=== PATIENT | female | born 1955 | race Caucasian/White ===

== ENCOUNTER 2021-01-24 04:36 | Inpatient (IN) | payer MEDICAID, OTHER ==
[2021-01-24] VITALS (15 sets, daily range): BP systolic 91–110; BP diastolic 38–63
[~2021-01-24] VITALS: Ht 172.7 cm; Wt 70.8 kg
--- NOTE | ~2021-01-24 | EMS ---
[facility] [address] [place] [address] EMS Patient Care Report Name: KENDALL ALVARADO Room #: PRE M.R.#: [id number] Admission: Attend Phys: Discharge: Date of : 57 Report #: [id number] THIS REPORT FOR: //name// Report Transmitted: 01/24/2021 04:16 EMS Care Summary [facility] MED-ACT Incident [phone] @ 01/24/2021 03:57 Incident Location [address] [place] [address] Patient KENDALL ALVARADO Female, 65 Years 1955 Patient Address [address] [place] [address] Patient History Congestive Heart Failure (CHF),Chronic Obstructive Pulmonary Disease (COPD),Type 2 Diabetes, Patient Allergies No known allergies, Patient Medications Albuterol, Prednisone, Atrovent, Lisinopril, Metformin, Lasix, Chief Complaint respiratory distress Disposition Transported No Lights/[place] [facility] Reason Breathing Problem Transported To [facility] Narrative M1144 responded emergent to [facility] for [facility] female pt in respiratory distress. S47 arrived on scene prior to M1144 and advised pt is critical. M1144 [facility] [address] [place] [address] EMS Patient Care Report Name: KENDALL ALVARADO Room #: PRE Osman.Ton.#: [id number] Admission: Attend Phys: Discharge: Date of : 57 Report #: [id number] arrived on scene to find the pt sitting upright in bed in obvious respiratory distress. S47 was applying CPAP. Pt noted to have rales in all 4 lung anthony. S47 states they came in and pt was in obvious respiratory distress, SPO2 in the 40s and unable to speak. Staff states pt hasn't been with them very long and they are unsure of pt hx. Paperwork reveals pt has a hx of CHF and COPD. Staff states about 3am pt was up walking around, attempting to use the bathroom in someone elses room. They state pt went back to her room and urinated all over her bed "and she seemed disoriented." Pt son happened to be in the same room as the pt and was able to provide EMS with a little more on the pt. He states she has been staying at the facility for approximately a week. Prior to that she was living out of a hotel. Son noted pt was not acting like herself and struggling to breath so he called 911. He states pt was "fine and without complaint" prior to going to bed. Pt perfusion improves with CPAP. Pt is able to follow commands. Pt moved from bed to cot via sheet. Pt secured to cot with 5 point seatbelt and moved to ambulance. Pt is transported with 2 paramedics in back to the closest open hospital. Pt to room, report given to MD and pt moved to bed via sheet without incident. Initial Vitals @04:15P: 160,SpO2: 97, @04:27P: 180,SpO2: 97, @04:29P: 150,R: 30,BP: 102/72,SpO2: 97, @04:34P: 150,R: 30,BP: 122/64,SpO2: 99, @PTAP: 69,R: 30,SpO2: 75, @PTAP: 150,BP: 134/67,Temp: 97.6F,SpO2: 65, Assessments @04:12MENTAL:Other,SKIN:HEENT:LUNG SOUNDS:ABDOMEN:PELVIS//GI:EXTREMITIES:PULSE:NEURO: Impression Acute Respiratory Distress (Dyspnea) Procedures @04:29Saline Lock 10cc (20 ga) Site: Antecubital-RightResponse: UnchangedSucceeded@PTAOxygen FlowRate: 2 Device: Nasal Cannula (NC) Response: UnchangedFailed@04:1512-Lead ECGResponse: UnchangedSucceeded@PTACPAP Response: Improved Timeline CHECK AND TRANSFER BEADER,Oxygen FlowRate: 2 Device: Nasal Cannula (NC) Response: UnchangedFailed, [facility] [address] [place] [address] EMS Patient Care Report Name: KENDALL ALVARADO Room #: PRE M.R.#: [id number] Admission: Attend Phys: Discharge: Date of : 57 Report #: [id number] CHECK AND TRANSFER BEADER,CPAP Response: Improved CHECK AND TRANSFER BEADER,BP: / M,PULSE: 69,RR: 30 R,SPO2: 75 Ox,ETCO2: ,BG: ,PAIN: ,GCS: , CHECK AND TRANSFER BEADER,BP: 134/67 M,PULSE: 150,RR: R,SPO2: 65 Ox,ETCO2: ,BG: ,PAIN: ,GCS: , 03:56,Call Received 03:56,Psap Call 03:57,Dispatched 04:00,En Route 04:07,On Scene 04:10,At Patient 04:15,12-Lead ECG,Response: UnchangedSucceeded, 04:15,BP: / M,PULSE: 160,RR: R,SPO2: 97 Ox,ETCO2: ,BG: ,PAIN: ,GCS: , 04:27,Depart Scene 04:27,BP: / M,PULSE: 180,RR: R,SPO2: 97 Ox,ETCO2: ,BG: ,PAIN: ,GCS: , 04:29,Saline Lock 10cc 20 ga Site: Antecubital-Right,Response: UnchangedSucceeded, 04:29,BP: 102/72 M,PULSE: 150,RR: 30 R,SPO2: 97 Ox,ETCO2: ,BG: ,PAIN: ,GCS: , 04:34,BP: 122/64 M,PULSE: 150,RR: 30 R,SPO2: 99 Ox,ETCO2: ,BG: ,PAIN: ,GCS: , 04:34,At Destination 04:51,Call Closed Disclaimer v1.1 Copyright 2020 [employer] This EMS Care Summary contains data elements from the applicable legal record (which may be displayed differently). It is designed to provide pertinent information for the following purposes: continuity of care, clinical quality, and state data reporting. The complete legal record is available to ED staff and administrators of the receiving hospital in ES's Patient Tracker. All data is provided "as is."
[2021-01-24 05:07] LABS: BE(vivo) 3.2 mmol/L (-2 to +3); HCO3 30.3 mmol/L (22.0-26.0); PCO2 61.5 mmHg (35.0-45.0); PO2 466.9 mmHg (80.0-100.0); pH 7.311 (7.360-7.450); sO2 99.8 % (92.0-98.0)
[2021-01-24] MEDS ORDERED: ASA81BEC PO (05:10)
[2021-01-24] MEDS ORDERED: ADVAIR 250-501 EACH INH (05:10)
[2021-01-24] MEDS ORDERED: TYLENOL325 M1 PO (05:10)
[2021-01-24] MEDS ORDERED: PROAIR HFA8.5 GM INH (05:10)
[2021-01-24] MEDS ORDERED: VITAMIN D310 MC2 PO (05:11)
[2021-01-24] MEDS ORDERED: FUROSEMIDE 40 M40 MG PO (05:11)
[2021-01-24] MEDS ORDERED: GLIPIZIDE 10 MG10 MG PO (05:11)
[2021-01-24] MEDS ORDERED: LISINOPRIL10 MG PO (05:11)
[2021-01-24] MEDS ORDERED: METFORMIN HCL500 M3 PO (05:11)
[2021-01-24] MEDS ORDERED: [UNRECOGNIZED DRUG - OTHER] PO (05:12)
[2021-01-24] MEDS ORDERED: ZOFRAN 4 MG ORAL4 MG PO (05:12)
[2021-01-24] MEDS ORDERED: PREDNISONE 10 M10 MG PO (05:12)
[2021-01-24 05:17] LABS: ANION GAP 9 mmol/L (7-16); BUN 21 mg/dL (7-18); CALCIUM 8.7 mg/dL (8.5-10.1); CHLORIDE 93 mmol/L (98-107); CO2 28 mmol/L (21-32); CREATININE 0.6 mg/dL (0.6-1.0); GLUCOSE 180 mg/dL (74-106); POTASSIUM 5.4 mmol/L (3.5-5.1); SODIUM 130 mmol/L (136-145)
[2021-01-24 05:23] LABS: ALBUMIN 3.6 g/dL (3.4-5.0); SALICYLATE < 2.8 mg/dL (2.8-20.0); SGOT 29 U/L (15-37); SGPT 21 U/L (14-59); TOTAL BILIRUBIN 0.9 mg/dL (0.2-1.0)
[2021-01-24 06:28] LABS: URINE BILIRUBIN NEGATIVE (Negative); URINE BLOOD NEGATIVE (Negative); URINE CLARITY CLEAR; URINE COLOR YELLOW; URINE GLUCOSE-RANDOM* NEGATIVE (Negative); URINE KETONES NEGATIVE (Negative); URINE LEUKOCYTES-REFLEX NEGATIVE (Negative); URINE NITRITE-REFLEX NEGATIVE (Negative); URINE PROTEIN (DIPSTICK) TRACE (Negative); URINE SPECIFIC GRAVITY 1.025 (1.005-1.035); URINE UROBILINOGEN 0.2 E.U./dl (0.2-1.0)
[2021-01-24 07:00] LABS: ABSOLUTE NEUTROPHILS 8.4 thou/uL (1.4-8.2); BASOPHILS 0.5 % (0.0-2.0); HEMATOCRIT 26.8 % (37.0-47.0); HEMOGLOBIN 8.3 gm/dL (12.0-15.0); LYMPHOCYTES 1.5 % (24.0-44.0); MCH 20.2 pg (26.0-34.0); MCHC 30.8 g/dL (28.0-37.0); MCV 65.7 fL (80.0-100.0); MONOCYTES 2.8 % (1.0-8.0); PLATELET COUNT 366 thou/uL (150-400); POLYS 95.2 % (36.0-66.0); RBC 4.08 mil/uL (4.20-5.00); RDW 20.3 % (10.5-14.5); WBC 8.8 thou/uL (4.0-11.0)
[2021-01-24 07:33] LABS: APTT 24.2 Seconds (24.5-32.8); PROTIME 10.3 Seconds (9.3-11.4)
[2021-01-24 09:41] LABS: FOLIC ACID 17.3 ng/mL (8.6-58.9)
[2021-01-24 09:44] LABS: ANISOCYTOSIS 1+; MICROCYTES 2+; PLATELET ESTIMATE NORMAL
[2021-01-24 09:57] LABS: % SATURATION 5 % (20-39); IRON 19 ug/dL (50-170); TIBC 362 ug/dL (250-450)
--- NOTE | 2021-01-24 12:05 | NUR ---
CALLED [facility] [phone], WAS PLACED ON HOLD AND NEVER PICK ED UP.
--- NOTE | 2021-01-24 12:12 | NUR ---
ATTEMPTED TO CALL HALFWAY AGAIN, WAS SENT TO INSTEAD OF NURSE.
--- NOTE | 2021-01-24 12:14 | NUR ---
RE-DIALED [facility], SPOKE TO HERMILA PETERSON VERIFIED TB NEGATIVE.
[2021-01-24 14:20] LABS: BE(vivo) 7.8 mmol/L (-2 to +3); HCO3 34.3 mmol/L (22.0-26.0); PCO2 61.5 mmHg (35.0-45.0); PO2 152.1 mmHg (80.0-100.0); pH 7.364 (7.360-7.450); sO2 98.8 % (92.0-98.0)
--- NOTE | 2021-01-24 15:31 | NUR ---
TRIED TO CALL HOSPITALIST BACK [phone] LINE BUSY, WILL TRY AGAIN.
--- NOTE | 2021-01-24 15:32 | NUR ---
TRIED HOSPITALIST AGAIN, LINE BUSY. WILL TRY AGAIN.
--- NOTE | 2021-01-24 17:29 | NUR ---
VAT CALLED FOR PICC INSERTION. 3CG OBTAINED RELWASED FOR IMMEDIATE USE PER PROTOCOL
--- NOTE | 2021-01-24 17:33 | NUR ---
VAT CONSULTED FOR PICC PLACEMENT. PT UNABLE TO LAY FLAT OR STILL DURING INSERTION. MCKENZIE UNSUCCESSFUL. DINORAH BRACHIAL WAS WIDELY PATENT WITH USG. 5FR TL POWER PICC TRIMMED TO 48CM INSERTED TO 3CM EXTERNAL WITH PEAKED P-WAVES ON 3CG FOR PICC CONFIRMATION. PICC RELEASED FOR IMMEDIATE USE PER PROTOCOL TO RADHA BRUSH
--- NOTE | 2021-01-24 21:30 | NUR ---
Pt arrived ICU valencia low, accompanied with ER and RT staff. She is being admit for COPD, CO2 narcosis and Hypoxia. She appears drowsy, arousable. Currently on BIPAP at this time. AAOx3. Denies of any pain or discomfort upon arrival. NSR upon arrival. HX obtained from old medical records. Assessment complated. Care plans are initiated. Continue working toward goals.
[2021-01-25] VITALS (90 sets, daily range): BP systolic 87–130; BP diastolic 36–85
[2021-01-25 03:15] LABS: RDW 19.4 % (10.5-14.5)
[2021-01-25 03:17] LABS: HEMATOCRIT 24.2 % (37.0-47.0); HEMOGLOBIN 7.7 gm/dL (12.0-15.0); MCH 21.6 pg (26.0-34.0); MCHC 31.7 g/dL (28.0-37.0); MCV 68.3 fL (80.0-100.0); RBC 3.55 mil/uL (4.20-5.00); WBC 5.7 thou/uL (4.0-11.0)
[2021-01-25 03:22] LABS: PLATELET COUNT 260 thou/uL (150-400)
[2021-01-25 03:31] LABS: APTT 28.3 Seconds (24.5-32.8); INR 1.02; PROTIME 11.1 Seconds (10.5-12.1)
[2021-01-25 03:39] LABS: CALCIUM 7.8 mg/dL (8.5-10.1); CREATININE 0.5 mg/dL (0.6-1.0); MAGNESIUM 1.7 mg/dL (1.8-2.4); POTASSIUM 4.5 mmol/L (3.5-5.1)
[2021-01-25 04:06] LABS: GLYCOHEMOGLOBIN (HGB A1C) 7.2 % (4.8-5.6)
[2021-01-25 04:11] LABS: ABSOLUTE NEUTROPHILS 5.5 thou/uL (1.4-8.2); NUCLEATED RBCS 1 /100WBC
[2021-01-25 04:12] LABS: ANISOCYTOSIS 2+; HYPOCHROMASIA 3+; MICROCYTES 2+; POLYCHROMASIA 1+
[2021-01-25 04:15] LABS: OVALOCYTES 1+; SCHISTOCYTES OCCASIONAL; TARGET CELLS 1+; TEARDROPS 1+
[2021-01-25 04:16] LABS: POIKILOCYTOSIS 1+
--- NOTE | 2021-01-25 05:29 | HC ---
[facility] [place] [address] [place] [address] CONSULTATION Name: KENDALL ALVARADO Room #: [facility]- ADM IN M.R.#: [id number] Admission: 01/24/21 Attend Phys: Narda Hernandez MD Discharge: Date of : 57 Report #: [id number] THIS REPORT FOR: cc: Adrian Cruz MD, Shyam MD Barry, Joseph W. MD ~ DATE OF SERVICE: 01/24/2021 INFECTIOUS DISEASE CONSULTATION ATTENDING PHYSICIAN: Dr. Hernandez. REASON FOR EVALUATION: Bilateral pneumonitis with miliary pattern noted on CT of the chest. HISTORY OF PRESENT ILLNESS: Chart reviewed. The patient examined. This is a 65-year-old woman with a degree of disease burden, has underlying lung disease with COPD. I think chronically requiring supplemental oxygen at 2 liters. She does live in a facility due to her capacitation. She has been noted to be encephalopathic, difficult to ascertain specifics about her situation. She described a cough. It is not clear that she had any fevers or chills. Does admit to anorexia, poor p.o. intake and perhaps a significant weight loss. She was referred from the facility due to worsening respiratory distress and encephalopathy. As per the evaluation, initial ABGs 100% showed a pO2 of 466. Coronavirus testing was negative. Urinalysis was unremarkable. Lactic acid normal range at 1.3. ProBNP of 1950. Chest x-ray shows some hyperexpansion and diffuse opacities; however, followup CT noted evidence of PE, emphysematous changes of tiny nodular bibasilar infiltrates, question of atypical pneumonitis, perhaps viral versus miliary TB or atypical Mycobacterium. Review of the records notes, she was supposed to have a TB test about a week ago. It is unclear as to why that was ordered. We do not have the results at this point, we will try to obtain those records. She was started on empiric therapy with vancomycin, azithromycin, ceftriaxone. ALLERGIES: None known. CURRENT MEDICATIONS: Antibiotics include pantoprazole, enoxaparin, budesonide, methylprednisolone 62.5, ipratropium, albuterol inhaler, p.r.n. antiemetics, antidiuretics. PAST MEDICAL HISTORY: Known history of O2 requiring COPD, diabetes mellitus type 2, cardiomyopathy with history of congestive heart failure, hypertension. SOCIAL HISTORY: Does smoke cigarettes. No current tobacco or ethanol use. FAMILY HISTORY: Noncontributory. [facility] [address] [place] [address] CONSULTATION Name: KENDALL ALVARADO Room #: 245-P [facility] IN ..#: [id number] Admission: 01/24/21 Attend Phys: Narda Hernandez MD Discharge: Date of : 57 Report #: [id number] REVIEW OF SYSTEMS: Not reliably obtained due to her encephalopathy. PHYSICAL EXAMINATION: GENERAL: She appears chronically ill, undernourished. She is pale. HEENT: Normocephalic. Extraocular muscles intact. Nasal cannula in place, 4 liters per nasal cannula. NECK: Supple. LUNGS: Diminished overall. Scattered coarse breath sounds. HEART: Distant, tachycardic, regular. I do not appreciate a murmur. ABDOMEN: Mildly distended, somewhat firm, nontender. EXTREMITIES: No cyanosis or edema. GENITOURINARY AND RECTAL: Deferred. LABORATORY DATA: CT of the chest as noted above. Ferritin of 61. TSH 0.693. CBC: White count 8.8, H and H 8.3 and 26.8, platelets of 366. D-dimer 0.55. Procalcitonin 0.10. Electrolytes: Sodium 130, potassium 5.4, chloride 93, bicarbonate is 28, BUN and creatinine 21 and 0.6. LFTs unremarkable. Albumin of 36, total protein 7.0, estimated GFR of 101. ASSESSMENT AND PLAN: Bilateral pneumonitis, acute on chronic situation, difficult to ascertain, I do not have any comparison imaging. She is unable to give any history. She denies any known exposure. 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 She has never been in overseas, although she denies ever having been tested for TB, seems unlikely. At this point, recommended to respiratory isolation until we can get more records. We will call the [facility] to obtain any recent TB results. It is not clear that she be able to expectorate any sputum at this point. Noted Pulmonary to evaluate, may need to do a bronchoscopy in this way of an alternative diagnosis. She remains quite tenuous. Continue to monitor expectantly. Continue empiric therapy. <ELECTRONICALLY SIGNED> By: Dre Leal MD 01/25/21 0529 1205 2100 Dre Leal MD /nt
[2021-01-25] MEDS ORDERED: DELTA D310 MCG PO (05:30)
[2021-01-25] MEDS ORDERED: MAALOX ADVANCE355 ML PO (06:19)
--- NOTE | 2021-01-25 06:26 | NUR ---
No event tonight. Pt remains on 3 liters of oxygen this morning. She is very shortness of breath with any activity. Refused to place BIPAP back on this morning. Off levophed gtt at 0600 hr. MAP > [address] on monitor. She is afebrile in this shift. Slowly progressing toward goals.
--- NOTE | 2021-01-25 10:29 | EKG ---
[address] [place] [address] ELECTROCARDIOGRAM REPORT Name: KENDALL ALVARADO Room #: 245-P ADM IN M.R.#: [id number] Admission: 01/24/21 Attend Phys: Narda Hernandez MD Discharge: Date of : 57 Report #: [id number] [facility] ED Test Date: 2021-01-24 Test Time: 04:43:25 Pat Name: KENDALL ALVARADO Department: Room: [facility] Gender: F Rinkman: DEXTER : 1955 Requested By: Narda Hernandez Order Number: [id number] MD: Cesar Montero Measurements Intervals [place] Rate: 114 P: 72 OK: 131 QRS: 115 QRSD: 89 T: 61 QT: 302 QTc: 416 Interpretive Statements Sinus tachycardia Right atrial enlargement Poor R wave progression No previous ECG available for comparison Electronically Signed On 01-25-2021 10:28:55 CDT by Cesar Montero [email or web address] <ELECTRONICALLY SIGNED> By: Cesar Montero MD, [facility] 01/25/21 1028 0443 0443 Cesar Montero MD, FACC /EPI
--- NOTE | 2021-01-25 10:43 | EKG ---
[address] [place] [address] ELECTROCARDIOGRAM REPORT Name: KENDALL ALVARADO Room #: 245-P ADM IN M.R.#: [id number] Admission: 01/24/21 Attend Phys: Narda Hernandez MD Discharge: Date of : 57 Report #: [id number] [facility] ED Test Date: 2021-01-24 Test Time: 14:07:39 Pat Name: KENDALL ALVARADO Department: Room: [facility] Gender: F Cna Instructor: JCHAIREZ : 1955 Requested By: Narda Hernandez Order Number: [id number] MD: Cesar Montero Measurements Intervals [place] Rate: 109 P: 76 CT: 135 QRS: 102 QRSD: 81 T: 62 QT: 310 QTc: 418 Interpretive Statements Sinus tachycardia Right axis deviation Borderline low voltage, extremity leads Compared to ECG 01/24/2021 04:43:25 No significant change was found Electronically Signed On 01-25-2021 10:43:21 CDT by Cesar Montero [email or web address] <ELECTRONICALLY SIGNED> By: Cesar Montero MD, [facility] 01/25/21 1043 06 06 Cesar Montero MD, [facility] /EPI
--- NOTE | 2021-01-25 16:11 | NUR ---
PT ALERT AND ORIENTED TIMES TWO. VSS. PT IS SOA ON EXCERTION. 96%3L, IVF INFUSING PER ORDER. SR ON KASSANDRA PRESCOTT TO DD. PT TOLERATES MEDS WITH SMALL SIPS OF WATER. PT DENIES PAIN. WILL CONTINUE TO MONITOR.
--- NOTE | 2021-01-25 20:00 | NUR ---
Pt is withdrew to painful stimulation only. TORSTEN. Place pt back on BIPAP at this time. Will continue to follow.
--- NOTE | 2021-01-25 20:00 | NUR ---
Pt is very somnolent, minimal resposes noted. Placed her back on BIPAP at this time.
--- NOTE | 2021-01-25 21:15 | 2DMMODE ---
[facility] [place] [address] 2 D/M-MODE ECHOCARDIOGRAM Name: KENDALL ALVARADO Room #: 245-P ADM IN M.R.#: [id number] Admission: 01/24/21 Attend Phys: Narda Hernandez MD Discharge: Date of : 57 Report #: [id number] THIS REPORT FOR: cc: Adrian Cruz MD, Shyam MD Lundgren, Craig H. MD [facility] ~ APPROVED REPORT Study performed: 01/25/2021 10:52:06 EXAM: Comprehensive 2D, Doppler, and color-flow Echocardiogram Patient Location: Bedside Room #: 245 Status: on-call BSA: 2.17 HR: 109 bpm BP: 108/60 mmHg Rhythm: NSR Other Information Study Quality: Adequate Technically limited study due to pt sitting upright. Risk Factors: Cardiac Risk Factors: HTN, Smoking Indications Congestive Heart Failure COPD Dyspnea Hypertension/HDD 2D Dimensions IVSd: 8.82 (7-11mm) LVOT Diam: 17.00 (18-24mm) LVDd: 38.11 mm PWd: 10.89 (7-11mm) Ascending Ao: 27.38 (22-36mm) LVDs: 24.32 (25-40mm) Left Atrium: 41.61 (27-40mm) Aortic Root: 23.10 mm LV Single Plane 4CH: 75.80 % LV Single Plane 2CH: 78.58 % Biplane EF: 77.6 % Volumes [facility] [address] [place] [address] 2 D/M-MODE ECHOCARDIOGRAM Name: KENDALL ALVARADO Room #: 245-P ADM IN M.R.#: [id number] Admission: 01/24/21 Attend Phys: Osman Sargent Discharge: Date of : 57 Report #: [id number] Left Atrial Volume (Systole) Single Plane 4CH: 82.77 mL Single Plane 2CH: 86.17 mL LA ESV Index: 44.00 mL/m2 Aortic Valve AoV Peak Anurag.: 2.40 m/s AO Peak Gr.: 23.12 mmHg LVOT Max P.25 mmHg AO Mean Gr.: 14.84 mmHg LVOT Mean P.30 mmHg AO V2 Mean: 1.88 m/s LVOT Max V: 1.39 m/s AO V2 VTI: 33.12 cm LVOT Mean V: 1.10 m/s BLAYNE (VTI): 1.58 cm2 LVOT V1 VTI: 23.13 cm BLAYNE Vmax: 1.31 cm2 SV (LVOT): 52.46 mL Mitral Valve MV Peak Gr.: 34.16 mmHg MV Mean Gr.: 20.80 mmHg MV Max Anurag.: 2.92 m/s MV Mean Anurag.: 2.17 m/s MV VTI: 571.25 mm MVA VTI: 91.83 mm2 MV PHT: 114.92 ms MVA (PHT): 1.91 cm2 Pulmonary Valve PV Peak Anurag.: 1.17 m/s PV Peak Gr.: 5.51 mmHg Tricuspid Valve TR Peak Anurag.: 3.87 m/s RAP Estimate: 10.00 mmHg TR Peak Gr.: 59.84 mmHg PA Pressure: 70.00 mmHg Left Ventricle The left ventricle is normal size. There is normal LV segmental wall motion. There is normal left ventricular wall thickness. Left ventricular systolic function is normal. The left ventricular ejection fraction is within the normal range. LVEF is >70%. This study is not technically sufficient to allow evaluation of the LV diastolic function. Right Ventricle The right ventricle is normal size. The right ventricular systolic function is normal. Atria Left atrium is moderately dilated. The right atrium size is [facility] [address] [place] [address] 2 D/M-MODE ECHOCARDIOGRAM Name: KENDALL ALVARADO Room #: 245-P [facility] IN [facility].#: [id number] Admission: 01/24/21 Attend Phys: Osman Sargent Discharge: Date of : 57 Report #: [id number] normal. Aortic Valve Aortic valve is calcified, trileaflet, mild stenosis No aortic regurgitation is present. The peak aortic gradient is 23 mmHg and the mean gradient is 15 mmHg. Calculated aortic valve area is 1.4 cm2. Mitral Valve Severe mitral annular calcification. Mitral valve leaflets are calcified. Severe mitral stenosis There is no mitral valve regurgitation The mean mitral valve pressure gradient is 21 mmHg, peak 36mmHg. Tricuspid Valve The tricuspid valve is normal in structure. Mild tricuspid regurgitation. Pulmonary artery pressure is 65-70 mmHg. Pulmonic Valve The pulmonary valve is normal in structure. There is no pulmonic valvular regurgitation. Great Vessels The aortic root is normal in size. The ascending aorta is normal in size. IVC is normal in size and collapses >50% with inspiration. Pericardium There is no pericardial effusion. <Conclusion> Left ventricular systolic function is normal. There is normal LV segmental wall motion. LVEF is >70%. Left atrium is moderately dilated. Aortic valve is calcified, trileaflet, mild stenosis. No aortic insufficiency The peak aortic gradient 23 mmHg and the mean gradient is 15 mmHg. Calculated aortic valve area is 1.4 cm2. Severe mitral annular calcification. Mitral valve leaflets are calcified. Severe mitral stenosis The mean mitral valve pressure gradient is 21 mmHg, peak 36mmHg. Mild tricuspid regurgitation. Pulmonary artery pressure of 65-[address] [address] 2 D/M-MODE ECHOCARDIOGRAM Name: KENDALL ALVARADO Room #: 245-P [facility] IN M.R.#: [id number] Admission: 01/24/21 Attend Phys: Osman Sargent Discharge: Date of : 57 Report #: [id number]. There is no pericardial effusion. <ELECTRONICALLY SIGNED> By: Cesar Montero MD, FACC 01/25/212114 14 14 Cesar Montero MD, FACC /INF
[2021-01-26] VITALS (49 sets, daily range): BP systolic 77–144; BP diastolic 35–65
[2021-01-26 04:39] LABS: HEMATOCRIT 25.2 % (37.0-47.0); HEMOGLOBIN 7.1 gm/dL (12.0-15.0); MCH 19.9 pg (26.0-34.0); MCHC 28.3 g/dL (28.0-37.0); MCV 70.5 fL (80.0-100.0); RBC 3.58 mil/uL (4.20-5.00); RDW 19.3 % (10.5-14.5); WBC 7.6 thou/uL (4.0-11.0)
[2021-01-26 04:57] LABS: CALCIUM 8.1 mg/dL (8.5-10.1); CREATININE 0.4 mg/dL (0.6-1.0); POTASSIUM 4.7 mmol/L (3.5-5.1)
--- NOTE | 2021-01-26 06:04 | NUR ---
Pt remains on BIPAP this am. Still very sleepy, but more resposive. VSS. Continue to monitor her closely.
[2021-01-26 09:13] LABS: BE(vivo) 6.2 mmol/L (-2 to +3); HCO3 35.8 mmol/L (22.0-26.0); PCO2 93.1 mmHg (35.0-45.0); PO2 79.1 mmHg (80.0-100.0); pH 7.203 (7.360-7.450)
--- NOTE | 2021-01-26 09:27 | NUR ---
PT OBTUNDED. ABG DRAWN AND CALLED TO DR. MEADE. ORDERS GIVEN BIPAP CHANGES MADE, WILL REPEAT ABG IN [address] MEADE THAT NOC NURSE STATED PT LUCID AT SOME POINT LAST NIGHT AND STATED SHE WANTED TO BE A FULL CODE. NOC NURSE STATED SHE CALLED PT SON WHO IS DPOA AND HE WANTED PT TO BE A FULL CODE WELL. CODE STATUS CHANGED TO FULL CODE.
[2021-01-26 13:35] LABS: BE(vivo) 11.9 mmol/L (-2 to +3); HCO3 39.7 mmol/L (22.0-26.0); PCO2 78.7 mmHg (35.0-45.0); pH 7.321 (7.360-7.450); sO2 95.3 % (92.0-98.0)
[2021-01-26 17:44] LABS: HEMATOCRIT 26.5 % (37.0-47.0); HEMOGLOBIN 7.9 gm/dL (12.0-15.0)
--- NOTE | 2021-01-26 20:31 | NUR ---
END OF SHIFT NOTE. PT NOT PROGRESSING TOWARDS GOALS. REMAINS SOMNULENT ON BIPAP. 1 UNIT OF PRBCS TODAY. HBG UP TO 7.9
[2021-01-27] VITALS (23 sets, daily range): BP systolic 82–127; BP diastolic 40–54
[2021-01-27 04:46] LABS: BE(vivo) 14.3 mmol/L (-2 to +3); HCO3 43.5 mmol/L (22.0-26.0); PCO2 92.5 mmHg (35.0-45.0); PO2 86.3 mmHg (80.0-100.0); sO2 94.8 % (92.0-98.0)
[2021-01-27 06:12] LABS: HEMATOCRIT 27.1 % (37.0-47.0); HEMOGLOBIN 7.9 gm/dL (12.0-15.0); MCH 21.3 pg (26.0-34.0); MCHC 29.3 g/dL (28.0-37.0); MCV 72.8 fL (80.0-100.0); RBC 3.72 mil/uL (4.20-5.00); RDW 21.5 % (10.5-14.5); WBC 7.5 thou/uL (4.0-11.0)
[2021-01-27 06:40] LABS: CREATININE 0.5 mg/dL (0.6-1.0); POTASSIUM 4.2 mmol/L (3.5-5.1)
--- NOTE | 2021-01-27 07:23 | EKG ---
[address] [employer] [place] [address] ELECTROCARDIOGRAM REPORT Name: KENDALL ALVARADO Room #: 245-P ADM IN M.R.#: [id number] Admission: 01/24/21 Attend Phys: Narda Hernandez MD Discharge: Date of : 57 Report #: [id number] [facility] Test Date: 2021-01-26 Test Time: 14:19:22 Pat Name: KENDALL ALVARADO Department: Room: [facility] Gender: F Digital [employer] Press Operator: DANIEL : 1955 Requested By: Fredy Larose Order Number: [id number] MD: Ochoa Lazcano Measurements Intervals [place] Rate: 115 P: 78 CA: 119 QRS: 100 QRSD: 70 T: QT: 328 QTc: 454 Interpretive Statements Sinus arrhythmia Multiple premature complexes, vent & supraven Right axis deviation Borderline low voltage, extremity leads Minimal ST depression, inferior leads Compared to ECG 01/24/2021 14:07:39 ST (T wave) deviation now present Sinus tachycardia no longer present Electronically Signed On 01-27-2021 7:23:35 CDT by Ochoa Lazcano [email or web address] <ELECTRONICALLY SIGNED> By: Ochoa Lazcano MD, FACC 01/27/21 0723 1419 1419 Ochoa Lazcano MD, [facility] /EPI
--- NOTE | 2021-01-27 09:52 | NUR ---
UNABLE TO AROUSE PATIENT. ATTEMPT EVAL TOMORROW
[2021-01-27 13:08] LABS: BE(vivo) 8.6 mmol/L (-2 to +3); HCO3 39.2 mmol/L (22.0-26.0); sO2 91.8 % (92.0-98.0)
[2021-01-27 13:09] LABS: PCO2 98.8 mmHg (35.0-45.0); pH 7.216 (7.360-7.450)
--- NOTE | 2021-01-27 13:30 | NUR ---
ON BIPAP, LETHARGIC AND UNABLE TO AROUSE, GRIMMACES WITH CARE. VITALS STABLE. PATIENT'S SON CALLED AND UPDATED AND PRIVACY CODE PROVIDED. ORDERS RECEIVED FOR ABG AND CRITICAL RESULTS CALLED TO DR. MEADE. NEW ORDERS FOR INTUBATION LATER THIS AFTERNOON RECEIVED. ATTEMPT TO REACH SON BY PHONE WITH THIS UPDATE UNSUCCESSFUL AND PLACED ON HOLD FOR APPROXIMATELY 15MINUTES. WILL NOTIFY WHEN AVAILABLE.
--- NOTE | 2021-01-27 16:25 | NUR ---
Chart review, discussed during LOS and unite rounds. COPD, requiring use of BIPAP, CT today to rule out TB. Unable to visit with her. Will cont following as needed for dc needs.
--- NOTE | 2021-01-27 17:21 | NUR ---
DR. MEADE CAME TO THE UNIT TO INTUBATE PATIENT AND SHE SUDDENLY WOKE UP AND STARTED FOLLOWING COMMANDS. DR. MEADE GAVE ORDERS TO SWITCH OF BIPAP TO CANNULA FOR BREAKS BUT TO PLACE ON FULL FACE BIPAP MASK MOST OF THE TIME DUE TO PATIENT'S CO2 RETENTION HISTORY, HE ALSO STATED THAT HE WOULD ATTEMPT TO CALL SON AND TOUCH BASES ON POC AND CODE STATUS.
[2021-01-28] VITALS (20 sets, daily range): BP systolic 91–123; BP diastolic 38–51
[2021-01-28 04:58] LABS: HEMATOCRIT 25.1 % (37.0-47.0); HEMOGLOBIN 7.5 gm/dL (12.0-15.0); MCH 21.7 pg (26.0-34.0); MCHC 29.7 g/dL (28.0-37.0); MCV 73.2 fL (80.0-100.0); RBC 3.43 mil/uL (4.20-5.00); RDW 21.8 % (10.5-14.5); WBC 6.5 thou/uL (4.0-11.0)
[2021-01-28 05:08] LABS: ANION GAP < 0 mmol/L (7-16); BUN 22 mg/dL (7-18); CALCIUM 7.9 mg/dL (8.5-10.1); CHLORIDE 107 mmol/L (98-107); CO2 41 mmol/L (21-32); CREATININE 0.4 mg/dL (0.6-1.0); GLUCOSE 237 mg/dL (74-106); POTASSIUM 3.9 mmol/L (3.5-5.1); SODIUM 147 mmol/L (136-145)
[2021-01-28 05:12] LABS: BE(vivo) 12.8 mmol/L (-2 to +3); HCO3 40.5 mmol/L (22.0-26.0); PCO2 77.3 mmHg (35.0-45.0); PO2 101.2 mmHg (80.0-100.0); pH 7.337 (7.360-7.450)
--- NOTE | 2021-01-28 11:26 | NUR ---
Discussed during am unite rounds, will be moving to room 236 when bed opens up. Remains on isolation, unable to visit with syed, cont require use of bipap. Will cont following as needed for dc needs.
--- NOTE | 2021-01-28 16:03 | NUR ---
ASSUMED CARE OF PT AT 0700 PT IS NOT MEETING GOALS DUE TO HER NOT FOLLOWING ANY COMMANDS. PT DID OPEN HER EYES ONCE WHEN I SAID HER NAME BUT WOULD NOT SQUEEZE HANDS. SHE DOES WAKE UP WITH CARES.
[2021-01-29] VITALS (22 sets, daily range): BP systolic 100–138; BP diastolic 36–62
--- NOTE | 2021-01-29 09:38 | NUR ---
Recommend once TF at goal, discontinue IVF.
[2021-01-29 11:03] LABS: BE(vivo) 11.6 mmol/L (-2 to +3); HCO3 39.4 mmol/L (22.0-26.0); PCO2 75.1 mmHg (35.0-45.0); PO2 98.8 mmHg (80.0-100.0); pH 7.338 (7.360-7.450); sO2 96.8 % (92.0-98.0)
[2021-01-29 13:11] LABS: HEMATOCRIT 26.6 % (37.0-47.0); HEMOGLOBIN 7.9 gm/dL (12.0-15.0); MCH 21.3 pg (26.0-34.0); MCHC 29.6 g/dL (28.0-37.0); MCV 72.1 fL (80.0-100.0); RBC 3.69 mil/uL (4.20-5.00); RDW 22.4 % (10.5-14.5); WBC 8.3 thou/uL (4.0-11.0)
[2021-01-29 13:25] LABS: ANION GAP < 0 mmol/L (7-16); BUN 17 mg/dL (7-18); CALCIUM 8.2 mg/dL (8.5-10.1); CHLORIDE 107 mmol/L (98-107); CO2 43 mmol/L (21-32); CREATININE 0.4 mg/dL (0.6-1.0); GLUCOSE 182 mg/dL (74-106); POTASSIUM 3.7 mmol/L (3.5-5.1); SODIUM 147 mmol/L (136-145)
--- NOTE | 2021-01-29 17:07 | NUR ---
FAXED CLINICAL UPDATES AND NEGATIVE COVID RESULT (01/24/21) TO [facility]. WILL CONFIRM WITH KATE/LIAISON THAT SHE RECEIVED. [facility] P [phone]; FAX [phone]; M [phone]
--- NOTE | 2021-01-29 18:22 | NUR ---
ASSUMED CARE OF PT AT 0700 DR. ELLIOTT AT BEDSIDE AT 1300, NO NEW ORDERS GIVEN PT IS NOT MEETING GOALD AND STILL NEEDING A LOT OF OXYGEN SUPPORT AND SHE IS NOT FOLLOWING COMMANDS BUT WILL OCCASIONALLY SAY HELLO AND YES.
--- NOTE | 2021-01-29 20:40 | NUR ---
PT ASSESSMENT COMPLETED PER FLOW SHEETS, PT RESP RATE22 OS SAT 97% ON BI-PAP AT 70%, PT HAS GAG REFLEX BUT IS OTHERWISW UNRESPONSIVE EXCEPT MOANS A LITTLE TO STERNAL RUB, PT LUNGS ARE DIMINISHED L MORE DIM THAN R PT ON 70% BI-PAP AT THIS TIME SO -LUZ MARIA NOT PLACED AT THIS TIME AND WILL COORDINATE WITH RT ONCE PTS O2 DEMAND HAS LESSENED AND RT HAS TIME FOR PROCEDURE. PT TURNED TO LEFT SIDE.
[2021-01-30] VITALS (69 sets, daily range): BP systolic 70–147; BP diastolic 23–72
[2021-01-30 09:23] LABS: BE(vivo) 14.1 mmol/L (-2 to +3); HCO3 46.9 mmol/L (22.0-26.0); PO2 137.1 mmHg (80.0-100.0); sO2 97.5 % (92.0-98.0)
[2021-01-30 09:24] LABS: PCO2 140.9 mmHg (35.0-45.0)
--- NOTE | 2021-01-30 10:33 | NUR ---
ASSUMED CARE OF PT AT 0700, PT IS STILL NON RESPONSIVE AND ON BIPAP
--- NOTE | 2021-01-30 12:39 | NUR ---
cm rtrn'd rn call. rn indicated she got her questions answered, as there was conflicting info btwn [facility] and facility regarding pt's code status. per rn, pt's son, kevin, "wants everything done."
--- NOTE | 2021-01-30 19:06 | NUR ---
Contacted [facility]'s lab to find DNA probe results for MTB this afternoon. Fax results came in at [phone]. Called ICU. Patient nurse in room. Informed Yun to place fax on patient chart. Call placed to Dr. Navarro for order to discontinue airborne precautions. He agreed for isolation ca'kana Barlow confirmed isolation was discontinued and sign removed.
[2021-01-31] VITALS (81 sets, daily range): BP systolic 91–142; BP diastolic 25–83
--- NOTE | 2021-01-31 04:47 | NUR ---
ASSUMED CARE OF PATIENT AT 2200. PATIENT WAS ON A/C OF 18/380/.40 +5. SUCTIONED LITTLE TO NO SECRETIONS OUT DURING THE SHIFT. MADE NO CHANGES TO SETTINGS. PATIENT IN NO SEDATED AND IN NO DISTRESS.
[2021-01-31 08:50] LABS: T-SPOT.TB Negative
--- NOTE | 2021-01-31 16:24 | NUR ---
Will cont. dcp as needed for discharge. No anticipated dc over the weekend. She cont on vent, nutritional support. Will update op centers next week.
--- NOTE | 2021-01-31 18:33 | NUR ---
Patient progressing towards plan of care as evidenced by increasing periods of alertness, however, does not follow commands or attempt to communicate. Levophed titration, and sedation titration for patient comfort and ventilator compliance. She is tolerating nutrition.
[2021-02-01] VITALS (20 sets, daily range): BP systolic 89–132; BP diastolic 36–402
[2021-02-01 11:59] LABS: HEMATOCRIT 23.8 % (37.0-47.0); HEMOGLOBIN 7.1 gm/dL (12.0-15.0); MCH 21.1 pg (26.0-34.0); MCV 70.4 fL (80.0-100.0); RBC 3.38 mil/uL (4.20-5.00); RDW 23.4 % (10.5-14.5); WBC 10.6 thou/uL (4.0-11.0)
[2021-02-01 12:09] LABS: ALBUMIN 2.2 g/dL (3.4-5.0); ANION GAP < 0 mmol/L (7-16); BUN 18 mg/dL (7-18); CALCIUM 7.9 mg/dL (8.5-10.1); CHLORIDE 106 mmol/L (98-107); CO2 41 mmol/L (21-32); CREATININE 0.5 mg/dL (0.6-1.0); GLUCOSE 283 mg/dL (74-106); MAGNESIUM 2.2 mg/dL (1.8-2.4); PHOSPHORUS 2.4 mg/dL (2.5-4.9); POTASSIUM 3.9 mmol/L (3.5-5.1); SGOT 17 U/L (15-37); SGPT 19 U/L (30-65); SODIUM 146 mmol/L (136-145); TOTAL BILIRUBIN 0.7 mg/dL (0.2-1.0); TOTAL PROTEIN 5.5 g/dL (6.4-8.2)
[2021-02-01 13:19] LABS: BE(vivo) 14.3 mmol/L (-2 to +3); HCO3 40.3 mmol/L (22.0-26.0); PCO2 61.6 mmHg (35.0-45.0); PO2 69.3 mmHg (80.0-100.0); pH 7.434 (7.360-7.450); sO2 93.8 % (92.0-98.0)
--- NOTE | 2021-02-01 14:48 | NUR ---
PT INTUBATED AND SEDATED, VENT SETTINGS TITRATED BY RT. PT AFEBRILE, ADEQUATE UOP, NO BM, TOLERATING TUBE FEEDINGS. PICC LINE DOES NOT DRAW OUT OF ONE PORT, VASCULAR ACCESS MADE AWARE. SEDATION STOPPED THIS AM AND PT WAS ABLE TO WAKE UP BUT DOES NOT FSC OR TRACK WITH EYES. PT AND FAMILY HAVE BEEN THOUROUGHLY UPDATED AND EDUCATED ON PT CONDITION AND POC. UNABLE TO TITRATE LEVOPHED DUE TO PT CONDITION. PT SLOWLY PROGRESSING TOWARDS POC.
[2021-02-02] VITALS: BP 121/39
[2021-02-02 02:04] VITALS: BP 117/89
[2021-02-02 04:00] VITALS: BP 109/41
[2021-02-02 04:25] LABS: BE(vivo) 13.2 mmol/L (-2 to +3); HCO3 38.8 mmol/L (22.0-26.0); PCO2 57.8 mmHg (35.0-45.0); PO2 61.6 mmHg (80.0-100.0); pH 7.445 (7.360-7.450); sO2 91.9 % (92.0-98.0)
[2021-02-02 05:55] LABS: ABSOLUTE NEUTROPHILS 11.4 thou/uL (1.4-8.2); BASOPHILS 0.3 % (0.0-2.0); EOSINOPHILS 1.6 % (0.0-3.0); HEMATOCRIT 24.1 % (37.0-47.0); HEMOGLOBIN 7.3 gm/dL (12.0-15.0); LYMPHOCYTES 4.1 % (24.0-44.0); MCH 21.1 pg (26.0-34.0); MCHC 30.5 g/dL (28.0-37.0); MCV 69.2 fL (80.0-100.0); MONOCYTES 5.4 % (1.0-8.0); PLATELET COUNT 203 thou/uL (150-400); POLYS 88.6 % (36.0-66.0); RBC 3.48 mil/uL (4.20-5.00); RDW 24.2 % (10.5-14.5); WBC 12.9 thou/uL (4.0-11.0)
[2021-02-02 06:00] VITALS: BP 119/41
--- NOTE | 2021-02-02 06:00 | NUR ---
REMAINS INTUBATED AND SEDATED WITH PROPOFOL 20 MCG AND FENTANYL 100 MCG VENT MANAGEMENT. SR WITH OCC PAC 1000 CC UO THIS SHIFT. MAMADOU TUBE FEEDINGS NO STOOLS TONIGHT. PARTIAL BATH GIVEN. SLOWLY PROGRESSING TOWARD GOALS WILL CONT TO MONITOR.
[2021-02-02 06:40] LABS: ALBUMIN 2.2 g/dL (3.4-5.0); ANION GAP < 0 mmol/L (7-16); BUN 19 mg/dL (7-18); CALCIUM 7.9 mg/dL (8.5-10.1); CHLORIDE 105 mmol/L (98-107); CO2 42 mmol/L (21-32); CREATININE 0.5 mg/dL (0.6-1.0); GLUCOSE 228 mg/dL (74-106); PHOSPHORUS 2.5 mg/dL (2.6-4.7); POTASSIUM 4.1 mmol/L (3.5-5.1); SODIUM 143 mmol/L (136-145)
--- NOTE | 2021-02-02 15:44 | NUR ---
PT INTUBATED AND SEDATED, VENT SETTINGS CHANGED BY MD. PT IS MORE AWAKE TODAY BUT DOSE NOT FSC. BEGINING TO TRACK WITH EYES. LEVOPHED BEING TITRATED DOWN PER PT CONDITION. PT AFEBRILE, ADEQUATE UOP, NO BM, TOLERATING TUBE FEEDING. RESTRAINTS IN PLACE. SARAH PICC LINE WAS SHOWN TO BE MISPLACED SO IV ACCESS TEAM WAS CALLED AND THEY REPLACED THE LINE AND IS NOW IN THE RU EXTREMITIY AND HAS BEEN CONFIRMED FOR USE. ATTEMPTED TO CALL THE ONLY PERSON LISTED ON CHART, HE WAS UNABLE TO BE REACHED, DUE TO BEING IN A MEDICAL FACILITY HIMSELF. PT HAS BEEN THOUROUGHLY UPDATED AND EDUCATED ON PT CONDITION AND POC. PT SLOWLY PROGRESSING TOWARDS POC.
--- NOTE | 2021-02-02 16:00 | NUR ---
NOTIFIED THE PICC WAS LOOPED AND MALPOSITIONED. A NEW ORDER AND CONSENT WERE OBTAINED. A NEW #5F TRIPLE LUMEN PICC WAS PLACED PER HOSPITAL POLICY AFTER A BEDSIDE TIMEOUT WAS COMPLETED. THE RIGHT BASILIC WAS WIDLEY PATENT. THE LINE WAS TRIMMED TO 40CM AND ADVANCED WITHOUT DIFFICULTY. THE LINE WAS CONFIRMED AT 0CM EXTERNAL. SECURED AND RELEASED FOR USE
--- NOTE | 2021-02-02 17:31 | NUR ---
ASSUMED CARE OF PATIENT AT 1400. SETTINGS GIVEN TO ME WERE RATE 18 PRESSURE 16 30% +5. BREATHING TREATMENT AND VENT CHECKS WERE DONE ACCORDING TO SCHEDULE. NO SIGNS OF DISTRESS NOTED.
[2021-02-02 20:00] VITALS: BP 115/38
[2021-02-02 22:00] VITALS: BP 98/64
[2021-02-03] VITALS (30 sets, daily range): BP systolic 99–131; BP diastolic 32–53
--- NOTE | 2021-02-03 06:00 | NUR ---
REMAINS INTUBATED and lightly sedated with PROPOFOL AT 10 MCG FENTANYL 25 MCG EYES OPEN FOLLOWS NO COMMANDS. LEVOPHED GTT TITRATED OFF AT 0400. RESTRAINTS REMOVED ALSO AT THIS TIME. EXTREMITIES FLACCID, FOLLOWS NO COMMANDS. PROGROSSING TOWARD GOALS
[2021-02-03 07:06] LABS: HEMATOCRIT 22.6 % (37.0-47.0); HEMOGLOBIN 6.9 gm/dL (12.0-15.0); MCH 21.7 pg (26.0-34.0); MCHC 30.7 g/dL (28.0-37.0); MCV 70.6 fL (80.0-100.0); RDW 24.7 % (10.5-14.5)
[2021-02-03 07:08] LABS: RBC 3.21 mil/uL (4.20-5.00); WBC 8.7 thou/uL (4.0-11.0)
[2021-02-03 07:30] LABS: ANION GAP < 0 mmol/L (7-16); BUN 20 mg/dL (7-18); CALCIUM 8.3 mg/dL (8.5-10.1); CHLORIDE 106 mmol/L (98-107); CO2 40 mmol/L (21-32); CREATININE 0.5 mg/dL (0.6-1.0); GLUCOSE 232 mg/dL (74-106); POTASSIUM 4.2 mmol/L (3.5-5.1); SODIUM 145 mmol/L (136-145)
--- NOTE | 2021-02-03 09:53 | NUR ---
OFF SEDATION FROM , NODDED YES TO SIMPLE QUESTIONS, SEEMINGLY APPROPRIATE. WEANING TRIAL FROM [id number]. PATIENT WAS TACHYPNIC IN THE 30'S, HEART RATE 1-TEENS, O2 SATURATION SLOWLY DECREASING (LOWEST 95%), AND TIDAL VOLUMES DROPPED. RT CHECKED WITH DR. WALTON WHO EXPRESSED TO STOP WEANING TRIAL AT THIS TIME. PATIENT NODDED YES TO FEELING LIKE SHE CAN'T BREATH, BUT NO TO PAIN AT THIS TIME. PROPOFOL RESUMED.
--- NOTE | 2021-02-03 16:23 | NUR ---
Chart review, Discussed during los. Remains on vent,tube feed nutritional support and updates sent to op centers today.
--- NOTE | 2021-02-03 17:04 | NUR ---
FAXED CLINICAL UPDATES TO [facility]. [facility] P [phone]; FAX [phone]
--- NOTE | 2021-02-03 19:44 | NUR ---
Patient not progressing towards plan of care as evidenced by continued need for ventilator support. 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 Restraints have been off all this shift.
[2021-02-04] VITALS (25 sets, daily range): BP systolic 103–137; BP diastolic 34–51
[2021-02-04 04:14] LABS: BE(vivo) 13.4 mmol/L (-2 to +3); HCO3 38.7 mmol/L (22.0-26.0); PO2 61.9 mmHg (80.0-100.0); pH 7.473 (7.360-7.450); sO2 92.6 % (92.0-98.0)
[2021-02-04 05:00] LABS: HEMATOCRIT 26.1 % (37.0-47.0); HEMOGLOBIN 8.3 gm/dL (12.0-15.0); MCH 23.2 pg (26.0-34.0); MCHC 31.7 g/dL (28.0-37.0); MCV 73.1 fL (80.0-100.0); RBC 3.58 mil/uL (4.20-5.00); RDW 26.2 % (10.5-14.5); WBC 9.2 thou/uL (4.0-11.0)
--- NOTE | 2021-02-04 06:02 | NUR ---
No event in this shift. Pt remains on vent and lightly sedated with propofol. She is awakes with stimulation. She is extremely weak. Barely move her UE. Feet are withdrew to stimulation. She denies of any pain. VSS. Continue to monitor any changes.
[2021-02-04 07:08] LABS: CALCIUM 8.1 mg/dL (8.5-10.1); CREATININE 0.4 mg/dL (0.6-1.0); POTASSIUM 4.1 mmol/L (3.5-5.1)
[2021-02-04 08:17] LABS: BE(vivo) 17.1 mmol/L (-2 to +3); PCO2 52.1 mmHg (35.0-45.0); PO2 91.6 mmHg (80.0-100.0); pH 7.524 (7.360-7.450); sO2 97.6 % (92.0-98.0)
[2021-02-04 15:41] LABS: BE(vivo) 15.1 mmol/L (-2 to +3); HCO3 41.4 mmol/L (22.0-26.0); PCO2 61.8 mmHg (35.0-45.0); pH 7.444 (7.360-7.450); sO2 95.1 % (92.0-98.0)
--- NOTE | 2021-02-04 20:25 | NUR ---
END OF SHIFT NOTE. PT CPAP TRIAL TODAY, DID FAIR BUT THEN WITH AGONAL RESPIRATIONS. PLACED BACK ON FULL SUPPORT. DIPRIVAN RESTARTED. PT NODDED THAT SHE WAS IN PAIN SO FENTANYL INCREASED TO 50MCG. NODDING YES AND NO APPROPRIATELY. TOLORATING TUBE FEEDINGS.
--- NOTE | 2021-02-04 22:00 | NUR ---
Pt with positive stool occult blood. Clarify order of lovenox with TIN Ochoa.
[2021-02-05] VITALS (24 sets, daily range): BP systolic 101–150; BP diastolic 33–57
[2021-02-05 04:56] LABS: HEMATOCRIT 27.3 % (37.0-47.0); HEMOGLOBIN 8.5 gm/dL (12.0-15.0); MCHC 31.1 g/dL (28.0-37.0); RBC 3.68 mil/uL (4.20-5.00); RDW 26.9 % (10.5-14.5); WBC 10.8 thou/uL (4.0-11.0)
[2021-02-05 04:57] LABS: CALCIUM 8.2 mg/dL (8.5-10.1); CREATININE 0.4 mg/dL (0.6-1.0); POTASSIUM 4.1 mmol/L (3.5-5.1)
--- NOTE | 2021-02-05 07:00 | NUR ---
No changes of conditions. She remains on vent . Unable to turn off sedation due to labored breathing. VSS. Not making any progres in this shift.
--- NOTE | 2021-02-05 11:01 | NUR ---
1055- cpap trial started.
--- NOTE | 2021-02-05 12:45 | NUR ---
Patient respiratory rate 25-30's, Heart rate 1-teens, patient appears uncomfortable with her breathing, oxygenation saturation >95%. Patient nodded yes to feeling short of breath. Propofol restarted and patient switched back to PC by RT.
[2021-02-05 17:39] LABS: APTT 24.7 Seconds (24.5-32.8); INR 1.01
[2021-02-06] VITALS (73 sets, daily range): BP systolic 76–133; BP diastolic 27–47
[2021-02-06 04:43] LABS: HEMATOCRIT 25.9 % (37.0-47.0); HEMOGLOBIN 8.1 gm/dL (12.0-15.0); MCH 23.3 pg (26.0-34.0); MCHC 31.2 g/dL (28.0-37.0); MCV 74.5 fL (80.0-100.0); RBC 3.48 mil/uL (4.20-5.00); RDW 27.8 % (10.5-14.5); WBC 9.9 thou/uL (4.0-11.0)
--- NOTE | 2021-02-06 04:48 | NUR ---
TOLERATES TURNS, RESTING QUIETLY ON SEDATION, FOLLOWS COMMANDS, NO BM. TOLERATING VENT
[2021-02-06 05:31] LABS: CALCIUM 7.6 mg/dL (8.5-10.1); CREATININE 0.4 mg/dL (0.6-1.0); POTASSIUM 4.1 mmol/L (3.5-5.1)
[2021-02-06 09:40] LABS: BE(vivo) 13.8 mmol/L (-2 to +3); PCO2 61.8 mmHg (35.0-45.0); pH 7.429 (7.360-7.450); sO2 95.3 % (92.0-98.0)
[2021-02-07] VITALS (114 sets, daily range): BP systolic 86–168; BP diastolic 24–64
[2021-02-07 05:45] LABS: HEMOGLOBIN 8.2 gm/dL (12.0-15.0); MCH 22.6 pg (26.0-34.0); MCHC 30.5 g/dL (28.0-37.0); MCV 74.4 fL (80.0-100.0); RBC 3.63 mil/uL (4.20-5.00); RDW 28.3 % (10.5-14.5); WBC 13.8 thou/uL (4.0-11.0)
[2021-02-07 06:04] LABS: ANION GAP < 0 mmol/L (7-16); BUN 19 mg/dL (7-18); CALCIUM 7.6 mg/dL (8.5-10.1); CHLORIDE 99 mmol/L (98-107); CO2 39 mmol/L (21-32); CREATININE 0.4 mg/dL (0.6-1.0); GLUCOSE 147 mg/dL (74-106); POTASSIUM 3.9 mmol/L (3.5-5.1); SODIUM 137 mmol/L (136-145)
--- NOTE | 2021-02-07 11:36 | NUR ---
1130HRS- PROPOFOL AND FENTANYL TURNED OFF PER DR. MEADE FOR CPAP TRIAL.
--- NOTE | 2021-02-07 11:56 | NUR ---
Chart review. Discussed during los and unite rounds. EGD today. CPAP trial, vent with nutritional support. Cm tried call her son jatin at op centers, no answer. No anticipated dc over the weekend. Possible extubate soon. Updates sent to op centers.
--- NOTE | 2021-02-07 12:12 | HC ---
[facility] [place] [address] [place] [address] CONSULTATION Name: KENDALL ALVARADO Room #: 244-P ADM IN M.R.#: [id number] Admission: 01/24/21 Attend Phys: Narda Hernandez MD Discharge: Date of : 57 Report #: [id number] THIS REPORT FOR: cc: Adrian Cruz MD, Shyam MD Khosla,Gibson Kay MD ~ DATE OF SERVICE: 01/26/2021 HISTORY OF PRESENT ILLNESS: A 65-year-old female patient was seen by me for altered mental status. The patient is unable to provide any history. I talked to the nurses looking after this patient and reviewed those records. This patient has numerous medical problems. She has hypercapnic respiratory failure and according to the nurses, pCO2 was in 90s, it is better now. She was also hypotensive. Apparently, she has a question of sleep apnea. There is some question of Mycobacterium in the lungs in this patient. REVIEW OF SYSTEMS: Positive for the fact that the patient has severe debility, muscle weakness, malnutrition, diabetes, electrolyte imbalances, history of cardiomyopathy. This is all from the record. She is a DNR, but she is on pressure breathing. She has recurrent episodes of hypotension. This is as per the patient's records. She is being followed by multiple consultants including Pulmonology and ID. I do not have any prior history, which tells me she has a stroke, but I do not have any family member here to tell me anything else. This was her relevant 14-point review of systems. PAST MEDICAL HISTORY: Positive for COPD, which appears to be worse. FAMILY HISTORY: Unavailable. SOCIAL HISTORY: From the record and she has a history of tobacco use, but does not use alcohol now. PHYSICAL EXAMINATION: Very limited. She did not wake up. She did not follow any commands for me. I cannot tell if she can move anything. She does squeeze her eyes shut when I tried to open. Her plantar appeared to be upgoing. She did have a CT scan of the head, which I reviewed, which showed no acute changes. Her blood pressure has been low. Temperature is normal. Hemoglobin is 7.1. She does have some electrolyte imbalances with a slightly increased sodium. IMPRESSION: This patient has most likely encephalopathy. With such profound metabolic problems, especially increased CO2, metabolic encephalopathy is suspected, but she also has multiple other problems and looks like the quality of the life is not very good on her. I will get an EEG done sometime, but I really do not have anything specific to add and I think we need to address her systemic problems and discussed with the family how they want to be and how aggressive they want to be. [facility] [address] [place] [address] CONSULTATION Name: KENDALL ALVARADO Room #: 244-P [facility] IN M.R.#: [id number] Admission: 01/24/21 Attend Phys: Narda Hernandez MD Discharge: Date of : 57 Report #: [id number] Thank you very much for this referral and if you have any questions, please feel free to contact me. <ELECTRONICALLY SIGNED> By: Gibson Walters MD 02/07/21 1212 1351 [id number] Gibson Walters MD /nt
--- NOTE | 2021-02-07 12:12 | EEG ---
[facility] [place] [address] [place] [address] ELECTROENCEPHALOGRAM Name: KENDALL ALVARADO Room #: 244-P [facility] IN M.R.#: [id number] Admission: 01/24/21 Attend Phys: Narda Hernandez MD Discharge: Date of : 57 Report #: [id number] THIS REPORT FOR: //name// DATE OF SERVICE: 01/28/2021 This patient is being evaluated for the possibility of encephalopathy and seizure. EEG was done by placing the electrode by standard 10-20 system of electrode placement. Both referential and sequential montages were used for recording. Background activity in this patient's EEG is about 7 Hz and 30 microvolt. Photic stimulation is unremarkable. The EEG continued to be the same. IMPRESSION: This is a severely abnormal EEG because it is disorganized and poorly formed. That typically occur with encephalopathy, but is a nonspecific finding which can occur with dementia, effect of psychotropic medication, etc. Clinical correlation is recommended. <ELECTRONICALLY SIGNED> By: Gibson Walters MD 02/07/21 1212 1259 [id number] Gibson Walters MD /nt
[2021-02-07 12:46] LABS: BE(vivo) 13.8 mmol/L (-2 to +3); HCO3 39.5 mmol/L (22.0-26.0); PCO2 56.8 mmHg (35.0-45.0); PO2 74.6 mmHg (80.0-100.0); sO2 95.3 % (92.0-98.0)
--- NOTE | 2021-02-07 13:10 | NUR ---
1021HRS - EGD PERFORMED BY DR. Ruiz 1027HRS - EGD COMPLETED 1310HRS - EXTUBATION PER DR. MEADE
--- NOTE | 2021-02-07 16:45 | NUR ---
FAXED CLINICAL UPDATES TO [facility]. WILL CONFIRM WITH KATE/THAT THEY RECEIVED.
--- NOTE | 2021-02-07 18:14 | NUR ---
1810HRS - BMX1 APPROX 100ML OF LIQUID SOFT STOOL
--- NOTE | 2021-02-07 18:15 | NUR ---
[address] CALLED AND TALK TO SON LONDON ALVARADO ON TODAY EGD PROCEDURE. REQUESTED THAT HE BE AT STANDBY AND READILY AVAILABLE TO RECEIVE A PHONE CALL FROM THE HOSPITAL FOR CONSENT
[2021-02-08] VITALS (65 sets, daily range): BP systolic 35–150; BP diastolic 17–57
[2021-02-08 05:37] LABS: ANION GAP < 0 mmol/L (7-16); BUN 12 mg/dL (7-18); CHLORIDE 102 mmol/L (98-107); CO2 40 mmol/L (21-32); CREATININE 0.3 mg/dL (0.6-1.0); POTASSIUM 3.6 mmol/L (3.5-5.1); SODIUM 140 mmol/L (136-145)
[2021-02-08 05:38] LABS: CALCIUM 7.8 mg/dL (8.5-10.1); GLUCOSE 113 mg/dL (74-106)
[2021-02-08 05:48] LABS: HEMATOCRIT 29.4 % (37.0-47.0); HEMOGLOBIN 8.8 gm/dL (12.0-15.0); MCH 22.7 pg (26.0-34.0); MCHC 29.9 g/dL (28.0-37.0); MCV 75.9 fL (80.0-100.0); RBC 3.88 mil/uL (4.20-5.00); WBC 14.2 thou/uL (4.0-11.0)
--- NOTE | 2021-02-08 07:34 | NUR ---
AT 0640 PATIENT DESATTED, WAS UNRESPONSIVE, DIAPHORETIC, AND BRADYCARDIC. RT WAS ON THE UNIT, APOLINAR A BLOOD GAS. CRITICAL RESULTS CALLED TO KO. ER UP TO EMERGENTLY INTUBATE. INTUBATION SUCCESSFUL, HOWEVER PATIENT THEN BECAME PULSELESS. BARRY RAUSCH CALLED. ONE ROUND OF EPI AND 2 MINUTES OF CHEST COMPRESSIONS. ROSC OBTAINED. PATIENT MOVED TO NEW ROOM DUE TO TECHNICAL PROBLEMS WITH MONITORING. THIS RN ATTEMPTED TO NOTIFY SON, NO ANSWER. PATIENT REMAINS ON THE VENTILATOR, LEVOPHED GTT INCREASED TO SUPPORT BLOOD PRESSURE. PATIENT NOT PROGRESSING TOWARDS POC GOALS.
[2021-02-08 08:48] LABS: HCO3 42.1 mmol/L (22.0-26.0); PO2 350.1 mmHg (80.0-100.0); sO2 99.7 % (92.0-98.0)
[2021-02-08 08:49] LABS: PCO2 88.8 mmHg (35.0-45.0); pH 7.294 (7.360-7.450)
--- NOTE | 2021-02-08 10:08 | P ---
[facility] [place] [address] PROCEDURE REPORT Name: KENDALL ALVARADO Room #: [facility] IN M.R.#: [id number] Admission: 01/24/21 Attend Phys: Narda Hernandez MD Discharge: Date of : 57 Report #: [id number] THIS REPORT FOR: cc: Adrian Cruz MD, Shyam MD McElhinney, Christian C. MD ~ cc: Fredy Larose MD, Dre Leal MD DATE OF SERVICE: 02/07/2021 PROCEDURE PERFORMED: Upper endoscopy with biopsies. HISTORY OF PRESENT ILLNESS: The patient is a 65-year-old female with a history of COPD exacerbation, on ventilator and pressors at this time. She has Hemoccult positive stools. No obvious signs of melena or bright red blood per rectum. Last bowel movement was approximately two days ago. She did have a drop in her hemoglobin to a low of 6.9 on the 2nd. She has been transfused. Her hemoglobin has been stable since that time. Hemoglobin at this time is 8.2. She is on PPI therapy. She has been tolerating tube feeds through her OG. DESCRIPTION OF PROCEDURE: The risks and benefits of the procedure were explained to the patient's son. Those risks include damage, but not limited to bleeding, perforation and the risk of sedation. She understood these risks and gave informed consent. The procedure was performed in the ICU at the bedside. Again, the patient is already on propofol drip at this time and on a vent. The patient was further sedated with increased propofol. Next, using a standard Olympus upper endoscope, the scope was placed in the patient's mouth and advanced under direct vision through the esophagus, stomach and into the second portion of the duodenum. The esophagus was normal throughout. The GE junction was normal. In the gastric body, several linear ulcerations were noted. These were clean white ulcerations. No evidence of active bleeding. In fact, no evidence of blood throughout the exam today. A mild diffuse gastritis was also noted. Biopsies were obtained to rule out H. pylori. The pylorus was normal and patent. The duodenal bulb, first and second portion were all normal. The scope was then withdrawn and the procedure terminated. The patient tolerated the procedure well. IMPRESSION: 1. Several linear gastric ulcers, possible source of recent bleed. No evidence of bleeding at this time. 2. Gastritis, biopsies obtained to rule out H. pylori. 3. Otherwise, normal upper endoscopy. RECOMMENDATIONS: 1. Continue PPI therapy and monitoring hemoglobin. 2. Replace OG today and restart tube feedings at this time. [address] [address] PROCEDURE REPORT Name: KENDALL ALVARADO Room #: 247-P [facility] IN M.R.#: [id number] Admission: 01/24/21 Attend Phys: Narda Hernandez MD Discharge: Date of : 57 Report #: [id number] 3. We will await biopsy results. Thank you for allowing me to participate in her care. <ELECTRONICALLY SIGNED> By: Jerry Mcelroy MD 02/08/21 1008 0942 2239 Jerry Mcelroy MD /nt
--- NOTE | 2021-02-08 12:24 | EKG ---
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1955 Requested By: Narda Hernandez Order Number: [id number] : Damian Michelle Measurements Intervals [place] Rate: 73 P: 65 [place]: 123 QRS: 93 QRSD: 76 T: 57 QT: 361 QTc: 398 Interpretive Statements Sinus rhythm Low voltage, extremity leads Compared to ECG 01/26/2021 14:19:22 Sinus arrhythmia no longer present Right-axis deviation no longer present ST (T wave) deviation no longer present Electronically Signed On 02-08-2021 12:24:06 CDT by Damian Michelle [email or web address] <ELECTRONICALLY SIGNED> By: Damian Michelle MD 02/08/21 1224 1 1 Damian Michelle MD /EPI
--- NOTE | 2021-02-08 12:30 | NUR ---
ASSUMMED CARE ON THIS PATIENT AFTER CODE FROM [facility] BRUSH. BILATERAL VENOUS DOPPLER OF UPPER EXTERMITES COMPLETED. PATIENT IS MORE RESPONSIVE. MAP WILL DROP INTO THE 50'S AND LEVOPHED TITRATED FOR BP. PROPOFOL, FENTANYL AND VERSED FOR VENT MANAGEMENT. WILL CONTINUE TO MONITOR.
[2021-02-08 13:03] LABS: BE(vivo) 12.2 mmol/L (-2 to +3); HCO3 38.3 mmol/L (22.0-26.0); PCO2 59.8 mmHg (35.0-45.0); PO2 125.4 mmHg (80.0-100.0); pH 7.424 (7.360-7.450); sO2 98.5 % (92.0-98.0)
--- NOTE | 2021-02-08 19:00 | NUR ---
PATIENT NOT PROGRESSING TOWARDS OUTCOME GOALS SHE REMAINS INTUBATED AND ON LEVOPHED FOR BP SUPPORT.
[2021-02-09] VITALS (68 sets, daily range): BP systolic 100–187; BP diastolic 31–67
[2021-02-09 04:48] LABS: HCO3 39.8 mmol/L (22.0-26.0); PCO2 59.3 mmHg (35.0-45.0); PO2 148.3 mmHg (80.0-100.0); pH 7.445 (7.360-7.450); sO2 98.9 % (92.0-98.0)
[2021-02-09 04:57] LABS: HEMATOCRIT 24.3 % (37.0-47.0); HEMOGLOBIN 7.6 gm/dL (12.0-15.0); MCH 23.4 pg (26.0-34.0); MCHC 31.4 g/dL (28.0-37.0); MCV 74.6 fL (80.0-100.0); RBC 3.26 mil/uL (4.20-5.00); RDW 27.7 % (10.5-14.5); WBC 11.2 thou/uL (4.0-11.0)
[2021-02-09 05:04] LABS: CALCIUM 7.9 mg/dL (8.5-10.1); CREATININE 0.4 mg/dL (0.6-1.0)
--- NOTE | 2021-02-09 14:12 | NUR ---
1410HRS - PT'S SON (LONDON Josue) CALLED FROM [facility]ILITY [facility]. WAS GIVEN AND UPDATE AND STATUS OVER THE LAST TWO DAY AND TODAY.
[2021-02-10] VITALS (214 sets, daily range): BP systolic 89–1225; BP diastolic 29–80
[2021-02-10 04:33] LABS: BE(vivo) 10.8 mmol/L (-2 to +3); pH 7.365 (7.360-7.450); sO2 96.3 % (92.0-98.0)
[2021-02-10 05:49] LABS: HEMATOCRIT 26.8 % (37.0-47.0); HEMOGLOBIN 8.3 gm/dL (12.0-15.0); MCH 23.5 pg (26.0-34.0); MCV 75.7 fL (80.0-100.0); RBC 3.55 mil/uL (4.20-5.00); RDW 28.1 % (10.5-14.5); WBC 9.7 thou/uL (4.0-11.0)
[2021-02-10 06:31] LABS: CALCIUM 8.3 mg/dL (8.5-10.1); CREATININE 0.4 mg/dL (0.6-1.0); POTASSIUM 4.4 mmol/L (3.5-5.1)
--- NOTE | 2021-02-10 07:35 | EKG ---
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 : 1955 Requested By: Marry Witt Order Number: [id number] MD: Ochoa Lazcano Measurements Intervals [place] Rate: 188 P: ID: QRS: 104 QRSD: 71 T: 21 QT: 257 QTc: 455 Interpretive Statements Atrial fibrillation with rapid V-rate Right axis deviation Low voltage, extremity leads ST depression, probably rate related Compared to ECG 02/08/2021 07:22:05 Right-axis deviation now present ST (T wave) deviation now present Sinus rhythm no longer present Electronically Signed On 02-10-2021 7:35:27 CDT by Ochoa Lazcano [email or web address] <ELECTRONICALLY SIGNED> By: Ochoa Lazcano MD, [facility] 02/10/21 0735 0347 0347 Ochoa Lazcano MD, [facility] /EPI
--- NOTE | 2021-02-10 07:57 | NUR ---
Pt went into Afib RVR early this am,EKG was done Amiodarone drip and , metoprolol ivp given, per TIN Witt, cardiology was consulted and spoke with DR Michelle, additional metoporolol given per orders. Pt's heart better controlled following med administration.
--- NOTE | 2021-02-10 15:22 | NUR ---
Chart review. Discussed during los. was extubated over past weekend and had to be reintubated. Sent updates to op centers. Possible will need trach and peg, will cont following as needed for dc needs.
--- NOTE | 2021-02-10 18:06 | PATH ---
[facility] [place] [address] PATHOLOGY RPT PROCEDURE Name: AMANDA ALVARADO Room #: 247-P ADM IN M.R.#: [id number] Admission: 01/24/21 Date of : 57 Discharge: Report #: [id number] Path Case #: [id number] [facility] Accession Number: [id number] . 01 Material submitted: . gastrointestinal site - RANDOM GASTRIC R/O H. PYLORI . 01 Clinical history: . GI BLEED/GASTRITIS/COPD/CO2 NARCOSIS/HYPOXIA . 02 Diagnosis: Gastric mucosa, random gastric to rule out H. pylori, endoscopic biopsy: - Mild reactive gastropathy. - Negative for intestinal metaplasia or atrophy. - Negative for Helicobacter pylori (properly controlled immunohistochemical stain performed). 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 02 Electronically signed: . Shahla Flores MD, Pathologist NPI- [id number] . 01 Gross description: . The specimen is submitted in formalin, labeled "Amanda Alvarado random gastric biopsy". Received are 3 segments of pale perera tissue ranging in size from 0.3 to 0.5 cm in maximum dimensions. The specimen is submitted in cassette A1. ([facility]; 02/07/2021) NRI/NRI 02/07/2021 1712 Local . 02 Pathologist provided ICD-10: K31.9 . 02 CPT . 174561, [id number] Specimen Comment: A courtesy copy of this report has been sent to [phone], [phone] Specimen Comment: [phone], Specimen Comment: Report sent to , DR ELLIOTT / DR TAI Performed at: [address] [id number] MD Edgar Pratt MD Phone: [phone] Performed at: [address] [id number] [address] [address] PATHOLOGY RPT PROCEDURE Name: AMANDA ALVARADO Room #: 247-P [facility] IN M.R.#: [id number] Admission: 01/24/21 Date of : 57 Discharge: Report #: [id number] Path Case #: [id number] MD Shahla Flores MD Phone: [phone]
[2021-02-11] VITALS (72 sets, daily range): BP systolic 111–168; BP diastolic 35–69
--- NOTE | 2021-02-11 07:41 | NUR ---
ASSUME CARE 1900. PT/VITALSS TABLE. PT IS AWAKE/ALERT AND MOST OFTEN FOLLOWS COMMANDS. PUPILS ARE EQUAL AND REACTIVE. INTERMITTENT PAIN/TYLENOL FOR RELIEF. MODERATE PROGRESS TOWARDS POC. ASSESSMENT CHARTED. SR ON MONITOR/PT ON AMIO DRIP. TOLERATING TUBE FEEDING OK. BP STABLE WITH LEVO OFF. POOR REST THROUGH THE NIGHT. PT STARTED ON RETRAINTS ( SOFT MITTENS) TO PREVENT HER FROM DISLODGING MEDICAL DEVICES. LARGE RUNNY DIARRHEA NOTED. BS PRESENT BUT ABDOMEN IS FIRM AND DISTENDED. PLAN IS TO WEAN PT OFF VENT AND ASSESS IF TRACHE IS NEEDED. WILL CONTINUE TO MONITOR AND FOLLOW WITH POC
--- NOTE | 2021-02-11 19:23 | NUR ---
0800HRS - CARDIOLOGY ALYSSA WATTS , KEEP AMIO @ 0.5MG/MIN AND CALL BACK TO INFORM PLANS WITH PT.
[2021-02-12] VITALS (25 sets, daily range): BP systolic 115–177; BP diastolic 37–87
--- NOTE | 2021-02-12 09:11 | NUR ---
ASSUME CARE 1900. PT/VITALS STABLE. NO APPARENT PAIN NOTED. POOR TOLERANCE TO ACTIVITY. PT COULD BENEFIT FROM PT/OT. POOR REST NOTED THROUGH THE NIGHT. PT IS AWAKE AND ALERT BUT VERY WEAK. ASSESSMENT CHARTED. PROGRESSING SLOWLY WITH POC. PLAN IS TO CONTINUE WITH ABX THERAPY/TUBE FEEDING AND WEAN PT OFF VENT. CARDIOLOGY FOLLOWING WITH DYSRRHYTHMIA AND NEUROLOGY CONSULTED ARMANDO. WILL CONTINUE TO MONITOR AND FOLLOW WITH POC
[2021-02-13] VITALS (43 sets, daily range): BP systolic 92–165; BP diastolic 34–58
[2021-02-13 03:52] LABS: HEMATOCRIT 26.7 % (37.0-47.0); HEMOGLOBIN 8.3 gm/dL (12.0-15.0); MCH 24.4 pg (26.0-34.0); MCHC 31.1 g/dL (28.0-37.0); MCV 78.4 fL (80.0-100.0); RBC 3.41 mil/uL (4.20-5.00); RDW 32.4 % (10.5-14.5); WBC 9.8 thou/uL (4.0-11.0)
[2021-02-13 04:51] LABS: ALBUMIN 2.2 g/dL (3.4-5.0); CALCIUM 7.8 mg/dL (8.5-10.1); CREATININE 0.4 mg/dL (0.6-1.0); PHOSPHORUS 2.2 mg/dL (2.5-4.9); POTASSIUM 4.1 mmol/L (3.5-5.1)
--- NOTE | 2021-02-13 09:50 | NUR ---
Cm notified by bedside nurse that surgery unable to get a hold of son kevin with numbers listed and need assist with this. Cm called op center [phone], asked for kevin novak, was told he just left for appointment, asked if he has cell phone and how long he will be going. Per social work, he out for eye appointment and he has cell phone but no money to charge his phone, will give him message to call his moms nurse per op center social work. Cm passed on information to bedside nurse.
[2021-02-14] VITALS (28 sets, daily range): BP systolic 111–167; BP diastolic 34–60
--- NOTE | 2021-02-14 09:33 | NUR ---
Cm spoke with son jatin via phone call, got his cell # to call also [phone] or can call op center main number and as for him on skilled rehab [facility]. Education on [facility] in area would be next steps since she go trach and peg yesterday. Ok send referrals if that is what she will need per kevin. [facility].
--- NOTE | 2021-02-14 13:49 | NUR ---
FAXED REFERRAL TO [facility] AND [facility]. WILL CONFIRM THEY RECEIVED AND BED AVAILABILITY. [facility] P [phone]; FAX [phone] [facility] P [phone]; FAX [phone]
[2021-02-15] VITALS (23 sets, daily range): BP systolic 120–152; BP diastolic 35–66
[2021-02-15 18:07] LABS: ABSOLUTE NEUTROPHILS 9.2 thou/uL (1.4-8.2); BASOPHILS 0.8 % (0.0-2.0); HEMATOCRIT 27.9 % (37.0-47.0); HEMOGLOBIN 8.8 gm/dL (12.0-15.0); LYMPHOCYTES 1.9 % (24.0-44.0); MCH 25.3 pg (26.0-34.0); MCHC 31.5 g/dL (28.0-37.0); MCV 80.3 fL (80.0-100.0); MONOCYTES 3.3 % (1.0-8.0); PLATELET COUNT 187 thou/uL (150-400); RBC 3.48 mil/uL (4.20-5.00); RDW 33.2 % (10.5-14.5); WBC 9.8 thou/uL (4.0-11.0)
[2021-02-15 18:19] LABS: CALCIUM 7.7 mg/dL (8.5-10.1); CREATININE 0.4 mg/dL (0.6-1.0); POTASSIUM 4.3 mmol/L (3.5-5.1)
[2021-02-15 18:43] LABS: ANISOCYTOSIS 1+; PLATELET ESTIMATE NORMAL
[2021-02-16] VITALS (14 sets, daily range): BP systolic 118–149; BP diastolic 40–50
--- NOTE | 2021-02-16 17:21 | NUR ---
PATIENT PROGRESSING TOWARDS THE PLAN OF CARE. CC TELE TRANSFER ORDERS. AWAITING OPEN BED IN [facility]ITHER [facility].
[2021-02-17] VITALS: BP 122/41
[2021-02-17 04:01] VITALS: BP 116/39
[2021-02-17 08:00] VITALS: BP 107/36
--- NOTE | 2021-02-17 08:00 | NUR ---
CM visited with bill at [facility] if have any beds this week. Have 2 beds this week and they are already filled for new patients per anna. Cm will check with [facility].
[2021-02-17 12:00] VITALS: BP 100/35
[2021-02-17 15:00] VITALS: BP 133/63
[2021-02-17 19:21] VITALS: BP 125/52
[2021-02-18 04:05] VITALS: BP 121/41
--- NOTE | 2021-02-18 08:18 | NUR ---
SLEPT PART OF SHIFT. ON VENT AND TOLERATING. TOLERATING TUBE FEEDING. WORKING ON GOALS AND PLAN OF CARE FOR NOC. PAIN MEDICATIONS GIVEN NEEDED. REPOSITIONED NEEDED. CONTINUE TO ASSES.
[2021-02-18 08:46] VITALS: BP 119/41
[2021-02-18 09:03] LABS: HEMATOCRIT 27.1 % (37.0-47.0); HEMOGLOBIN 8.5 gm/dL (12.0-15.0); MCH 25.5 pg (26.0-34.0); MCHC 31.5 g/dL (28.0-37.0); RBC 3.34 mil/uL (4.20-5.00); RDW 32.3 % (10.5-14.5); WBC 6.4 thou/uL (4.0-11.0)
[2021-02-18 09:13] LABS: ANION GAP < 0 mmol/L (7-16); BUN 31 mg/dL (7-18); CALCIUM 7.9 mg/dL (8.5-10.1); CHLORIDE 103 mmol/L (98-107); CO2 38 mmol/L (21-32); CREATININE 0.4 mg/dL (0.6-1.0); GLUCOSE 101 mg/dL (74-106); MAGNESIUM 1.7 mg/dL (1.8-2.4); POTASSIUM 3.8 mmol/L (3.5-5.1); SODIUM 139 mmol/L (136-145)
[2021-02-18 11:45] VITALS: BP 138/54
[2021-02-18 16:49] VITALS: BP 131/54
[2021-02-18 19:11] VITALS: BP 122/46
[2021-02-19 05:06] VITALS: BP 129/38
[2021-02-19 05:10] LABS: HEMATOCRIT 28.2 % (37.0-47.0); MCH 25.8 pg (26.0-34.0); MCV 80.6 fL (80.0-100.0); RBC 3.5 mil/uL (4.20-5.00); RDW 32.2 % (10.5-14.5); WBC 8.5 thou/uL (4.0-11.0)
[2021-02-19 05:26] LABS: CALCIUM 7.8 mg/dL (8.5-10.1); CREATININE 0.4 mg/dL (0.6-1.0); MAGNESIUM 1.7 mg/dL (1.8-2.4); POTASSIUM 3.7 mmol/L (3.5-5.1)
--- NOTE | 2021-02-19 06:25 | NUR ---
NO SIGNIFICANT EVENTS DURING THE NIGHT. PT TOLERATING VENT SETTINGS WELL. SPO2 >92%. SHE C/O GENERALIZED PAIN. PRN FENTANYL GIVEN WITH PARTIAL RELIEF. REPOSITIONED TO PREVENT SKIN BREAKDOWN AND FOR COMFORT. TF VIA PEG TUBE WITH MINIMAL RESIDUALS NOTED. CANNON TO DD WITH GOOD URINE OUTPUT. AFEBRILE. VSS. PROGRESSING SLOWLY TOWARD POC GOALS. WILL GIVE REPORT TO ONCOMING NURSE.
[2021-02-19 08:24] VITALS: BP 116/31
[2021-02-19 11:04] VITALS: BP 125/37
[2021-02-19 15:34] VITALS: BP 127/44
--- NOTE | 2021-02-19 15:35 | NUR ---
Spoke with [facility] they have submitted for auth. Faxed clinical update.
[2021-02-19 19:57] VITALS: BP 124/45
[2021-02-20] VITALS (7 sets, daily range): BP systolic 107–124; BP diastolic 36–53
--- NOTE | 2021-02-20 03:11 | NUR ---
PT REMAIN ALERT AND ORIENT TIMES THREE, MOUTHS WORDS AND NOD YES/NO APPROPRIATELY. VSS, AFEBRILE. TURNED EVERY TWO HOURS. DID HAVE A SMALL BM THIS SHIFT. TOLERATING TF PER PEG. SR PER MONITOR. SLOW PROGRESS TOWARDS DC GOALS, WILL CONTINUE TO MONITOR.
[2021-02-20 05:30] LABS: HEMATOCRIT 26.9 % (37.0-47.0); HEMOGLOBIN 8.6 gm/dL (12.0-15.0); MCH 26.1 pg (26.0-34.0); MCHC 32.1 g/dL (28.0-37.0); MCV 81.2 fL (80.0-100.0); RBC 3.31 mil/uL (4.20-5.00); RDW 31.3 % (10.5-14.5); WBC 7.1 thou/uL (4.0-11.0)
[2021-02-20 05:42] LABS: CALCIUM 7.7 mg/dL (8.5-10.1); CREATININE 0.4 mg/dL (0.6-1.0); POTASSIUM 3.8 mmol/L (3.5-5.1)
--- NOTE | 2021-02-20 12:49 | NUR ---
Call rec'd from López at [facility]. Ins auth in place and they will have a bed for her tomorrow. All parties updated. Nursing to remind the pt throughout the day today to anticipate ambulance transport there tomorrow. Son Priyank left vm on his cell but also notified the socialworker at [facility] to update him on plan for tomorrow. She notes they discussed it yesterday and she will confirm with him today and make sure he has the phone number to call and check on her there. Will coordinate timing of dc tomorrow per [facility] and [facility] for vent transport. López to call in the am with their bed available timeframe.
--- NOTE | 2021-02-20 18:43 | NUR ---
ASSUMED PATIENT CARE AT 0700. ALERT. TOLERATED ON VENT. SUCTION NEEDS, NOTED PATIENT HAS INCREASED ABD DISTENT. KUB DONE. PATIENT HAS BM. WILL KEEP MONITOR.
[2021-02-21] VITALS (14 sets, daily range): BP systolic 105–123; BP diastolic 36–46
--- NOTE | 2021-02-21 05:47 | NUR ---
ASSUME CARE 1900. VITALS STABLE. DBP RUNS SOFT/MAP IN HIGH 50s. COMPLAINS ON ABDO PAIN. ABDOMEN IS VERY DISTENDED AND FIRM. TUBE FEEDING STOPPED AND STAT CT OF ABDOMEN DONE. EMERGENCY LAPROSCOPIC ABDOMINAL SURGERY DONE TO RULE OUT BOWEL PERFORATION/ BOWEL. PER REPORT GIVEN BY OR NURSE AND SURGEON, NO PERFORTION/ BOWEL NOTED. PTRECUPERATING WELL. UP FROM ANESTHESIA THIS AM AND STILL ANSWERING QUESTIONS APPROPRIATELY AAS WELL COMMUNICATING NEEDS WELL. NO CHANGE IN MENTAL STATUS NOTED. VITALS STABLE/NO SIGNS ON BLEEDINGOR INFETION. NO FEVER NOTED. LAP SITES CDI/DERMABOND INTACT. PEG TUBE HOOKED UP TO LOW INTERMITTENT SUCTION. ABDOMEN LOOKS SOFT, ROUND, SYMMETTRICAL. DISTENTION SIGNIFICANTLY DECREASED. PLAN IS TO CONTINUE TO MONITOR AND MANAGE RESP FUNCTION WELL MONITOR ABDO FOR PAIN/DISTENTION. WILL CONTINUE TO MONITOR AND FOLLOW WITH POC
[2021-02-21 05:54] LABS: HEMATOCRIT 27.3 % (37.0-47.0); HEMOGLOBIN 8.6 gm/dL (12.0-15.0); MCH 25.6 pg (26.0-34.0); MCHC 31.5 g/dL (28.0-37.0); MCV 81.3 fL (80.0-100.0); RBC 3.36 mil/uL (4.20-5.00); RDW 31.3 % (10.5-14.5); WBC 9.8 thou/uL (4.0-11.0)
[2021-02-21 06:13] LABS: CALCIUM 7.7 mg/dL (8.5-10.1); CREATININE 0.3 mg/dL (0.6-1.0); MAGNESIUM 1.9 mg/dL (1.8-2.4); POTASSIUM 3.4 mmol/L (3.5-5.1)
--- NOTE | 2021-02-21 12:04 | NUR ---
Pt being seen by surgery due to abd CT/KUB results. [facility] updated and no bed anticipated until early next week. Ins auth is in place. Will f/u with all parties Wednesday.
--- NOTE | 2021-02-21 14:05 | NUR ---
Nutrition: Now that pt out of ICU, RD changing tube feed recs. Tube feeds currently on hold, when resumed, REC change to Glucerna 1.2 at 55 mL/hr goal rate. Order water flushes per physician due to edema/need for diuretics.
--- NOTE | 2021-02-21 15:03 | NUR ---
PT IS AXOX3-4; ORIENTATION TO TIME/DATE. VSS, AFEBRILE, SR ON THE MONITOR. PT IS POST OP FROM [place] TO DETERMINE ABD PAIN/DISTENTION SOURCE. PT PEG TUBE SET TO LOW INTERMITTENT SUCTION; OUTPUT GREEN/YELLOW. PT HAS TRACH WITH VENT ASST; VENT SETTINGS TIDAL VOL 400, PEEP 5, WITH #[id number]. DR DC CONSULTED, DR MCINTYRE CONSULTED, DR PEDRO CONSULTED. POC IS TO CONTINUE ABX THERAPY; PT TO REMAIN NPO UNTIL A BM PER DR PEDRO; KUB AND CT ORDERED FOLLOW UP TO POST OP. FALL PRECAUTIONS IN PLACE. FREQUENT ROUNDING.
[2021-02-22 05:32] VITALS: BP 116/46
--- NOTE | 2021-02-22 07:33 | NUR ---
pt reassments as charted, prn pain med given for c/o abd pain and leg pain, peg to lis, vent settings unchanged with sats high 90's, r upper pic, remains npo with freq oral care,will con't to monitor per ppoc.
[2021-02-22 08:01] VITALS: BP 111/43
--- NOTE | 2021-02-22 09:45 | NUR ---
Assumed care of pt this AM. Pt is A&O x3, nonverbal, mouths some words. Pt reports pain in the lt hip, PRN pain medication given with partial relief. Pt remains on vent, settings TV 400, PEEP 5, FIO2 30%. PEG to LIS w/ light green drainage. Triple lumen rt upper arm PICC remains patent. Frequent oral care provided. Will continue to assess pt needs.
[2021-02-22 11:06] VITALS: BP 131/48
[2021-02-22 15:13] VITALS: BP 116/48
[2021-02-22 19:10] VITALS: BP 108/45
[2021-02-23 03:44] VITALS: BP 109/54
[2021-02-23 04:55] LABS: HEMATOCRIT 26.8 % (37.0-47.0); HEMOGLOBIN 8.5 gm/dL (12.0-15.0); MCH 26.1 pg (26.0-34.0); MCHC 31.5 g/dL (28.0-37.0); MCV 82.6 fL (80.0-100.0); RBC 3.24 mil/uL (4.20-5.00); RDW 30.5 % (10.5-14.5); WBC 6.5 thou/uL (4.0-11.0)
[2021-02-23 05:27] LABS: CALCIUM 7.9 mg/dL (8.5-10.1); CREATININE 0.4 mg/dL (0.6-1.0); MAGNESIUM 1.9 mg/dL (1.8-2.4); POTASSIUM 3.8 mmol/L (3.5-5.1)
[2021-02-23 07:08] VITALS: BP 117/39
--- NOTE | 2021-02-23 09:42 | NUR ---
Assumed care of pt this AM. Pt is A&O x3, denies any chest pain. Pt remains on vent- TV 400, FiO2 30%, PEEP 5- sating 96%. Abdominal drain to LIS patent & draining light green fluid. Pt is c/o lt ankle, rt hip and slight abd pain. Pt continues to try to remove vent this AM to receive quicker response into room. Dr. Rothman notified & orders for PRN ativan obtained. Will continue to assess pt needs throughout the day.
[2021-02-23 11:53] VITALS: BP 132/54
[2021-02-23 15:35] VITALS: BP 116/57
[2021-02-23 19:55] VITALS: BP 127/97
[2021-02-23 23:48] LABS: BE(vivo) 4.1 mmol/L (-2 to +3); HCO3 28.5 mmol/L (22.0-26.0); PCO2 42.3 mmHg (35.0-45.0); PO2 81.5 mmHg (80.0-100.0); pH 7.447 (7.360-7.450); sO2 96.4 % (92.0-98.0)
--- NOTE | 2021-02-24 01:03 | NUR ---
PATIENT MORE CONFUSED AND IMPULSIVE THIS SHIFT. MULTIPLE TIMES NURSE HAS WITNESSED PATIENT PULLING OFF VENTILATOR AND BITING ON OXYGEN SATURATION MONITOR AND VENT TUBING. CALL PLACED TO PROVIDER WITH ORDERS RECEIVED FOR ABG WHICH WAS MOSTLY NORMAL. NURSE GIVING PRN ANXIETY AND PAIN MEDICATION AND FREQUENTLY ROUNDING. PATIENT CURRENTLY SLEEPING. NURSE TO CONTINUE TO ASSESS AND MONITOR.
[2021-02-24 03:17] VITALS: BP 141/55
[2021-02-24 05:56] LABS: HEMATOCRIT 28.7 % (37.0-47.0); HEMOGLOBIN 8.8 gm/dL (12.0-15.0); MCH 25.5 pg (26.0-34.0); MCHC 30.6 g/dL (28.0-37.0); MCV 83.2 fL (80.0-100.0); RBC 3.45 mil/uL (4.20-5.00); RDW 29.9 % (10.5-14.5); WBC 6.9 thou/uL (4.0-11.0)
[2021-02-24 06:07] LABS: CALCIUM 8.2 mg/dL (8.5-10.1); CREATININE 0.4 mg/dL (0.6-1.0); MAGNESIUM 1.6 mg/dL (1.8-2.4); POTASSIUM 3.7 mmol/L (3.5-5.1)
[2021-02-24 08:13] VITALS: BP 132/50
--- NOTE | 2021-02-24 14:37 | NUR ---
[facility] with bed avail today however patient with ilius per GI and not stable to dc today. Faxed updated clinical. casemgt following.
--- NOTE | 2021-02-24 14:41 | NUR ---
Nutrition: tube feeds Glucerna 1.2 to start at trophic rate of 10 mL/hr and advance per surgery. Eventual goal rate is recommended at 55 mL/hr and due to edema and use of diuretic, defer fluid needs/water flushes to physician.
[2021-02-24 16:23] VITALS: BP 124/45
--- NOTE | 2021-02-24 17:02 | NUR ---
ASSUMED CARE SHIFT CHANGE. VSS. PT TURNED MAMADOU. SUPPOSITORY THIS AM, PT HAD SUCCESSFUL BM. SURGEON NOTIFIED. ORDERS RECEVIED TO START TRICKLE TUBE FEEDS, GYM MANAGER CONSULTED REFER TO ORDERS. PT MAMADOU WELL. UOP ADEQUATE. VENT SETTINGS: TV 400, FIO2 30, A/C 14, PEEP 5. O2 SATS 98% AND ABOVE. CONT POC, PLAN FOR SNF POST DC. WILL PASS REPORT TO NOC RN.
[2021-02-24 19:39] VITALS: BP 118/41
[2021-02-25 04:22] VITALS: BP 132/49
--- NOTE | 2021-02-25 04:31 | NUR ---
ASSUMED PT CARE AT 1900, AWAKE, NON-VERBAL, C/O PAIN TO THE BLE, PAIN MEDS GIVEN PER MAR WITH RELIEF, ABDOMEN, SOFT WITH ACTIVE BOWEL SOUNDS, TF INCREASED TO 20ML/HR, NO RESIDUAL, SR ON TELE, CONTINUES ON VENT, CANNON CATHETER WITH ADEQUATE U/O, VSS, NO NEEDS AT THIS TIME, PROGRESSING TOWARDS POC
[2021-02-25 05:24] LABS: HEMATOCRIT 27.7 % (37.0-47.0); HEMOGLOBIN 8.9 gm/dL (12.0-15.0); MCH 26.4 pg (26.0-34.0); MCHC 32.1 g/dL (28.0-37.0); MCV 82.2 fL (80.0-100.0); RBC 3.37 mil/uL (4.20-5.00); RDW 29.5 % (10.5-14.5); WBC 6.1 thou/uL (4.0-11.0)
[2021-02-25 05:27] LABS: CALCIUM 8.1 mg/dL (8.5-10.1); CREATININE 0.5 mg/dL (0.6-1.0); MAGNESIUM 1.7 mg/dL (1.8-2.4); POTASSIUM 3.1 mmol/L (3.5-5.1)
[2021-02-25 07:30] VITALS: BP 134/37
[2021-02-25 08:00] VITALS: BP 134/37
[2021-02-25 11:30] VITALS: BP 137/57
--- NOTE | 2021-02-25 14:05 | NUR ---
PT IS ALERT AND ANXIOUS. PT HAS COMPLAINTS OF PAIN IN BLE. GIVEN PRN PAIN MEDICATION. PT IS CONSTANTLY ON THE NURSE CALL LIGHT. PT HAS TAKEN VENTILATOR TUBING OFF TRACH MULTIPLE TIMES. PT IS A TURN Q2HRS. TOLERATING TUBE FEED. VS STABLE.
--- NOTE | 2021-02-25 14:38 | NUR ---
FAXED CLINICAL UPDATES TO [facility]. WILL CONFIRM THEY RECEIVED. [facility] P [phone]; FAX [phone]
[2021-02-25 15:00] VITALS: BP 135/61
--- NOTE | 2021-02-25 15:45 | NUR ---
No bed avail at [facility] today. Phys reports patient not stable to dc today possibly tomorrow. [facility] may have bed tomorrow.
[2021-02-25 19:04] VITALS: BP 121/48
[2021-02-26 03:33] VITALS: BP 113/50
[2021-02-26 05:45] LABS: HEMATOCRIT 29.1 % (37.0-47.0); HEMOGLOBIN 9.2 gm/dL (12.0-15.0); MCH 26.1 pg (26.0-34.0); MCHC 31.5 g/dL (28.0-37.0); MCV 82.9 fL (80.0-100.0); RBC 3.51 mil/uL (4.20-5.00)
[2021-02-26 06:09] LABS: CALCIUM 8.1 mg/dL (8.5-10.1); CREATININE 0.5 mg/dL (0.6-1.0); POTASSIUM 4.1 mmol/L (3.5-5.1)
--- NOTE | 2021-02-26 07:00 | NUR ---
TUBE FEEDING TOLERATING WELL,NO RESIDUALS,GOAL IS INFUSING.CANNON TO DD.BM YESTERDAY.MONITOR SHOWS SR.POC CONTINUED.
[2021-02-26 07:21] VITALS: BP 117/39
[2021-02-26 11:45] VITALS: BP 121/42
--- NOTE | 2021-02-26 13:00 | NUR ---
PT ALERT AND ORIENTED TIMES FOUR. VENT/TRACH. VSS, CANNON TO DD. SR ON TELE PT C/O PAIN PRN PAIN MEDICATIONS GIVEN WITH SOME RELEIF. PT TURNED FREQUENTLY THIS SHIFT. PLANS FOR POSSIBLE DISCHARGE SOON. WILL CONTINUE TO MONITOR.
--- NOTE | 2021-02-26 14:18 | NUR ---
no bed avail at [facility] today updated phys.
[2021-02-26 15:50] VITALS: BP 124/39
[2021-02-26 19:20] VITALS: BP 140/64
[2021-02-27 04:12] VITALS: BP 146/61
--- NOTE | 2021-02-27 06:13 | NUR ---
POC WITH IVPB ANTIBIOTICS AND TUBE FEEDING. ALL TUBE FEEDING LINES REPLACED. ALL IV LINES REPLACED. TRACH HOSE POPPED OFF X3 OVERNIGHT. LOW LOSS AIR PUMP IN PLACE. VSS.
[2021-02-27 07:05] VITALS: BP 147/64
[2021-02-27 10:55] VITALS: BP 148/70
--- NOTE | 2021-02-27 12:24 | NUR ---
Updates faxed to [facility] this am. They anticipate having a bed for the pt tomorrow and she is at the top of their acceptance list. Surgery to see today due to some abd distention/peg. Her enteral feeding had been resumed and were back at goal rate. Will follow to finalize ltac transfer once her bed has been confirmed.
[2021-02-27 15:20] VITALS: BP 143/63
--- NOTE | 2021-02-27 18:28 | NUR ---
PT IS AXOX4, FORGETFUL, ANXIOUS; VSS, AFEBRILE, SR ON MONITOR. PT HAS TUBE FEEDING GLUCERNA 1.2 AT 55ML/HR, GOAL RATE 55ML/HR. SURGERY CONSULTED, DR JOHNSON CONSULTED, CASE MGMT CONSULTED; POC IS POSS D/C 02/28 TO [facility] PENDING BED PLACEMENT. PT TRACH WITH VENT, SETTINGS TV 500, ASST 14, PEEP 5, FiO2 30. FALL PRECAUTIONS IN PLACE; FREQUENT ROUNDING.
[2021-02-27 19:25] VITALS: BP 125/55
[2021-02-27 22:43] LABS: HEMATOCRIT 30.8 % (37.0-47.0); HEMOGLOBIN 9.5 gm/dL (12.0-15.0); MCH 25.8 pg (26.0-34.0); MCHC 30.9 g/dL (28.0-37.0); MCV 83.5 fL (80.0-100.0); RBC 3.69 mil/uL (4.20-5.00); RDW 28.8 % (10.5-14.5); WBC 6.9 thou/uL (4.0-11.0)
[2021-02-27 22:54] LABS: CALCIUM 8.4 mg/dL (8.5-10.1); CREATININE 0.4 mg/dL (0.6-1.0)
--- NOTE | 2021-02-28 05:02 | NUR ---
SLEPT MOST OF SHIFT. ATIVAN AND PAIN MEDICATIONS GIVEN PRN FOR COMFORT WITH NOTED RELIEF. WORKING ON GOALS AND PLAN OF CARE FOR NOC. PROGRESSING TOWARDS DISCHARGE TO LTAC TODAY. CONTINUE TO ASSES.
[2021-02-28 05:25] VITALS: BP 135/58
[2021-02-28 06:44] LABS: HEMATOCRIT 28.3 % (37.0-47.0); HEMOGLOBIN 8.9 gm/dL (12.0-15.0); MCH 26.4 pg (26.0-34.0); MCHC 31.5 g/dL (28.0-37.0); MCV 83.7 fL (80.0-100.0); RBC 3.38 mil/uL (4.20-5.00); RDW 27.9 % (10.5-14.5); WBC 5.9 thou/uL (4.0-11.0)
[2021-02-28 06:49] LABS: CALCIUM 8.1 mg/dL (8.5-10.1); CREATININE 0.4 mg/dL (0.6-1.0); POTASSIUM 3.9 mmol/L (3.5-5.1)
[2021-02-28 07:09] VITALS: BP 127/44
--- NOTE | 2021-02-28 09:47 | NUR ---
Assumed care of pt this AM. Pt is A&O x3. Denies any chest pain. Continues to c/o leg pain bilaterally. PRN pain medication given. Remains on vent 30% FiO2, TV 500, PEEP 5. Will continue to assess pt needs throughout the day.
[2021-02-28] MEDS ORDERED: IPRAT-ALBUT 0.5-3 ML INH (10:49)
[2021-02-28] MEDS ORDERED: ELIQUIS5 MG PO (10:49)
[2021-02-28] MEDS ORDERED: PACERONE 200 M200 M1 PO (10:49)
[2021-02-28] MEDS ORDERED: DEMADEX20 MG PO (10:50)
[2021-02-28] MEDS ORDERED: ACETAMINOPHEN325 M1 PO (10:50)
[2021-02-28] MEDS ORDERED: LANTUS100 UNIT/M SUBQ (10:51)
[2021-02-28] MEDS ORDERED: MEROPENEM1 GM IV (10:52)
[2021-02-28] MEDS ORDERED: PREDNISONE 10 M10 M1 PO (10:52)
[2021-02-28 11:15] VITALS: BP 119/40
--- NOTE | 2021-02-28 12:03 | NUR ---
Pt cleared medically for dc to [facility] today. They have confirmed a bed for her. [facility] arranged for vent transport at 1330 today. All parties updated. Dc orders faxed and confirmed with the [facility]. nursing to call report. Chart copy is ready and will be sent with the pt. message left for the rn social services at [facility] to make sure son Noman rec'd the message his mom is going to ltac today as his cell phone is not taking messages.
--- NOTE | 2021-02-28 13:46 | NUR ---
DISCHARGE NOTE: Report called to Paco at [facility] ([phone]). Pt to be transported via ambulance w/ trach. Paco stated that the PICC remains in place. Chart copy sent with transportation. Tele monitor & tube feeding d/c'ed.
== END 2021-02-28 14:42 | DRG 4 ==
LOC: ER 04:36 → EROBS 06:54 → ICU 06:54 → EROBS 10:51 → ICU 20:46 → 2N 02-17 13:30
PROVIDERS: Emergency Medicine; Hospitalist; Internal Medicine; Internal Medicine Pulmonary Disease; Nurse Practitioner; Nurse Practitioner Family; Pediatrics; Specialist; Surgery; ADMIT Hospitalist; ATTEND Hospitalist
PROC: 30233N1 Transfusion of Nonautologous Red Blood Cells into Peripheral Vein, Percutaneous Approach (ICD-10-PCS; 2021-01-24)
PROC: 02HV33Z Insertion of Infusion Device into Superior Vena Cava, Percutaneous Approach (ICD-10-PCS; 2021-01-24)
PROC: 5A09357 Assistance with Respiratory Ventilation, Less than 24 Consecutive Hours, Continuous Positive Airway Pressure (ICD-10-PCS; 2021-01-24)
PROC: B548ZZA Ultrasonography of Superior Vena Cava, Guidance (ICD-10-PCS; 2021-01-24)
PROC: 5A09457 Assistance with Respiratory Ventilation, 24-96 Consecutive Hours, Continuous Positive Airway Pressure (ICD-10-PCS; 2021-01-25)
PROC: 5A09357 Assistance with Respiratory Ventilation, Less than 24 Consecutive Hours, Continuous Positive Airway Pressure (ICD-10-PCS; 2021-01-27)
PROC: 5A09357 Assistance with Respiratory Ventilation, Less than 24 Consecutive Hours, Continuous Positive Airway Pressure (ICD-10-PCS; 2021-01-28)
PROC: 5A09357 Assistance with Respiratory Ventilation, Less than 24 Consecutive Hours, Continuous Positive Airway Pressure (ICD-10-PCS; 2021-01-29)
PROC: 0B9F8ZX Drainage of Right Lower Lung Lobe, Via Natural or Artificial Opening Endoscopic, Diagnostic (ICD-10-PCS; principal; 2021-01-30)
PROC: 5A1955Z Respiratory Ventilation, Greater than 96 Consecutive Hours (ICD-10-PCS; principal; 2021-01-30)
PROC: 0BD68ZX Extraction of Right Lower Lobe Bronchus, Via Natural or Artificial Opening Endoscopic, Diagnostic (ICD-10-PCS; principal; 2021-01-30)
PROC: 0BH18EZ Insertion of Endotracheal Airway into Trachea, Via Natural or Artificial Opening Endoscopic (ICD-10-PCS; principal; 2021-01-30)
PROC: 5A09357 Assistance with Respiratory Ventilation, Less than 24 Consecutive Hours, Continuous Positive Airway Pressure (ICD-10-PCS; principal; 2021-01-30)
PROC: B548ZZA Ultrasonography of Superior Vena Cava, Guidance (ICD-10-PCS; 2021-02-02)
PROC: 02HV33Z Insertion of Infusion Device into Superior Vena Cava, Percutaneous Approach (ICD-10-PCS; 2021-02-02)
PROC: 0DB68ZX Excision of Stomach, Via Natural or Artificial Opening Endoscopic, Diagnostic (ICD-10-PCS; 2021-02-07)
PROC: 5A12012 Performance of Cardiac Output, Single, Manual (ICD-10-PCS; 2021-02-08)
PROC: 0B110F4 Bypass Trachea to Cutaneous with Tracheostomy Device, Open Approach (ICD-10-PCS; 2021-02-13)
PROC: 0DH63UZ Insertion of Feeding Device into Stomach, Percutaneous Approach (ICD-10-PCS; 2021-02-13)
PROC: 0DJD4ZZ Inspection of Lower Intestinal Tract, Percutaneous Endoscopic Approach (ICD-10-PCS; 2021-02-20)
DX: A41.9 Sepsis, unspecified organism (principal); G92 Toxic encephalopathy; J69.0 Pneumonitis due to inhalation of food and vomit; J96.22 Acute and chronic respiratory failure with hypercapnia; J96.21 Acute and chronic respiratory failure with hypoxia; R65.21 Severe sepsis with septic shock; E46 Unspecified protein-calorie malnutrition; E87.1 Hypo-osmolality and hyponatremia; I42.9 Cardiomyopathy, unspecified; E87.0 Hyperosmolality and hypernatremia; R13.10 Dysphagia, unspecified; I50.9 Heart failure, unspecified; E78.5 Hyperlipidemia, unspecified; F17.210 Nicotine dependence, cigarettes, uncomplicated; E11.9 Type 2 diabetes mellitus without complications; E87.70 Fluid overload, unspecified; K29.70 Gastritis, unspecified, without bleeding; K25.9 Gastric ulcer, unspecified as acute or chronic, without hemorrhage or perforation; I95.9 Hypotension, unspecified; J43.9 Emphysema, unspecified; E86.0 Dehydration; I27.20 Pulmonary hypertension, unspecified; E87.5 Hyperkalemia; I11.0 Hypertensive heart disease with heart failure; D64.9 Anemia, unspecified; Z66 Do not resuscitate; Z20.822 Contact with and (suspected) exposure to COVID-19; Z86.711 Personal history of pulmonary embolism; Z86.718 Personal history of other venous thrombosis and embolism; Z79.84 Long term (current) use of oral hypoglycemic drugs; Z79.899 Other long term (current) drug therapy
CPT/HCPCS: 10078; 10081; 10797; 27000; 50101; 50386; 50403; 50411; 50455; 50555; 51489; 52265; 53307; 54118; 56525; 56526; 58574; 58921; 62110; 62900; 85076